=== PATIENT | male | born 1980 | race Caucasian/White ===

== ENCOUNTER 2020-10-23 09:56 | Outpatient (REF) | payer MEDICARE, MEDICAID, SELFPAY ==
[2020-10-23 11:10] LABS: Hemoglobin 13.7 g/dl (14.0-18.0); Lymphocytes Absolute Auto 1.6 X10*3/uL (1.2-4.9); MANUAL DIFF FLAG SCAN; PLT CLUMP 1; Red Cell Distribution Width 12.6 % (11.0-16.0); SCAN SMEAR FLAG 1
[2020-10-23 11:12] LABS: Basophils Percent Auto 0.2 % (0-2); Eosinophils Absolute Auto 0.1 X10*3/uL (0.0-0.4); Eosinophils Percent Auto 2.2 % (0-4); Hematocrit 39.4 % (42-52); Imm Gran Abs Auto 0.01 X10*3/uL (0.00-0.03); Imm Gran Pct Auto 0.2 % (0.0-0.4); Lymphocytes Percent Auto 39.2 % (20-40); Mean Corpuscular HGB Conc 34.8 g/dl (31.0-36.0); Mean Corpuscular Hemoglobin 31.6 pg (27.0-33.0); Mean Corpuscular Volume 90.8 fL (80-98); Mean Platelet Volume 10.9 fL (9.4-12.4); Monocytes Absolute Auto 0.4 X10*3/uL (0.1-1.2); Monocytes Percent Auto 10.6 % (2-11); Neutrophils Absolute Auto 1.9 X10*3/uL (2.0-8.3); Neutrophils Percent Auto 47.6 % (45-73); Platelet Count 135 X10*3/uL (160-400); Red Blood Count 4.34 X10*6/uL (4.60-5.80); White Blood Count 4.1 X10*3/uL (4.8-10.8)
[2020-10-23 11:31] LABS: Alanine Aminotransferase 20 U/L (0-40); Albumin Level 4.5 g/dL (3.5-5.0); Alkaline Phosphatase 83 U/L (39-117); Anion Gap 10 (12-20); Aspartate Amino Transferase 19 U/L (5-37); Bilirubin Total 0.5 mg/dL (0.0-1.0); Blood Urea Nitrogen 18 mg/dL (9-16); Calcium 9.2 mg/dL (8.4-10.2); Carbon Dioxide 32 mmol/L (22-29); Chloride 102 mmol/L (96-108); Estimated Glomerular Filt Rate > 60; Glucose Random 78 mg/dL (60-115); Potassium 3.5 mmol/L (3.3-5.1); Sodium 140 mmol/L (135-145)
[2020-10-23 11:44] LABS: SLIDE REVIEW VERIFIED
[2020-10-23 11:53] LABS: Free T4 (Free Thyroxine) 0.98 ng/dL (0.71-1.85); Thyroid Stimulating Hormone 2.59 uIU/mL (0.32-4.0)
[2020-10-23 12:29] LABS: Vitamin B12 457 pg/mL (200-900)
== END 2020-10-23 09:57 | disposition home or self-care (01) ==
LOC: HO.HMGCLDS 09:56
PROVIDERS: PCP Internal Medicine; Visit Provider Internal Medicine
DX: F69 Unspecified disorder of adult personality and behavior (principal); F48.9 Nonpsychotic mental disorder, unspecified; F41.9 Anxiety disorder, unspecified; Z79.899 Other long term (current) drug therapy
CPT/HCPCS: 36415; 80053; 82607; 82746; 84439; 84443; 85025

== ENCOUNTER 2021-10-09 10:24 | Outpatient (REF) | payer MEDICARE, MEDICAID, SELFPAY ==
[2021-10-09 10:36] LABS: MANUAL DIFF FLAG NO
[2021-10-09 11:17] LABS: Eosinophils Percent Auto 0.5 % (0-4); Hematocrit 41.4 % (42.0-52.0); Hemoglobin 14.3 g/dl (14.0-18.0); Imm Gran Abs Auto 0.01 X10*3/uL (0.00-0.03); Imm Gran Pct Auto 0.2 % (0.0-0.4); Immature Retic Fraction 5.2 % (2.3-13.4); Lymphocytes Absolute Auto 1.5 X10*3/uL (1.2-4.9); Lymphocytes Percent Auto 34.2 % (20-40); Mean Corpuscular HGB Conc 34.5 g/dl (31.0-36.0); Mean Corpuscular Hemoglobin 31.4 pg (27.0-33.0); Mean Corpuscular Volume 90.8 fL (80.0-98.0); Mean Platelet Volume 11.4 fL (9.4-12.4); Monocytes Absolute Auto 0.4 X10*3/uL (0.1-1.2); Monocytes Percent Auto 8.8 % (2-11); Neutrophils Absolute Auto 2.5 x10*3/uL (2.0-8.3); Neutrophils Percent Auto 56.3 % (45-73); Platelet Count 151 X10*3/uL (160-400); Red Blood Count 4.56 X10*6/uL (4.60-5.80); Red Cell Distribution Width 12.5 % (11.0-16.0); Retic HGB Equivalent 36.6 pg (30.0-35.0); Reticulocyte Percent 1.4 % (0.5-1.8); Reticulocytes Absolute 0.062 X10*6/uL (0.026-0.095); White Blood Count 4.4 X10*3/uL (4.8-10.8)
[2021-10-09 11:35] LABS: Alanine Aminotransferase 13 U/L (0-40); Albumin Level 4.6 g/dL (3.5-5.0); Alkaline Phosphatase 68 U/L (39-117); Anion Gap 11 (12-20); Aspartate Amino Transferase 17 U/L (5-37); Bilirubin Total 0.5 mg/dL (0.0-1.0); Blood Urea Nitrogen 16 mg/dL (9-16); Calcium 9.6 mg/dL (8.4-10.2); Carbon Dioxide 31 mmol/L (22-29); Chloride 103 mmol/L (96-108); Cholesterol 159 mg/dL; Estimated Glomerular Filt Rate > 60; Glucose Random 84 mg/dL (60-115); HDL Cholesterol 38 mg/dL; Iron 71 mcg/dL (45-160); LDL Cholesterol Calculated 108 mg/dl; Percent Iron Saturation 22 % (15-50); Potassium 4.4 mmol/L (3.3-5.1); Sodium 141 mmol/L (135-145); Total Iron Binding Capacity 318 mcg/dL (228-428); Triglycerides 69 mg/dL; Unsaturated Iron Binding 247 ug/dL
[2021-10-09 11:59] LABS: Ferritin 54 ng/mL (20-250); Free T4 (Free Thyroxine) 0.82 ng/dL (0.71-1.85); Thyroid Stimulating Hormone 1.35 uIU/mL (0.32-4.0)
[2021-10-11 09:45] LABS: Folate 8.9 ng/mL (> or = 4.0); Vitamin B12 403 pg/mL (200-900)
== END 2021-10-09 10:25 | disposition home or self-care (01) ==
LOC: HO.LAB 10:24
PROVIDERS: PCP Internal Medicine; Visit Provider Internal Medicine
DX: D64.9 Anemia, unspecified (principal); F48.9 Nonpsychotic mental disorder, unspecified; F69 Unspecified disorder of adult personality and behavior; E78.00 Pure hypercholesterolemia, unspecified
CPT/HCPCS: 36415; 80053; 80061; 82607; 82728; 82746; 83540; 84439; 84443; 85025; 85045

== ENCOUNTER → 2021-10-12 15:02 | Outpatient (REF) | payer MEDICARE, MEDICAID, SELFPAY ==
--- NOTE | 2021-10-12 15:06 | ECG_ITS ---
Test Reason : R00.1 Blood Pressure : / mmHG Vent. Rate : 046 BPM Atrial Rate : 046 BPM P-R Int : 112 ms QRS Dur : 084 ms QT Int : 454 ms P-R-T Axes : 051 048 037 degrees QTc Int : 397 ms Sinus bradycardia Otherwise normal ECG No previous ECGs available Referred By: Chelsey Park Electronically Signed By:NEYDA WOLF
== END ==
LOC: HO.CARD 15:02
PROVIDERS: PCP Internal Medicine; Visit Provider Internal Medicine
DX: R00.1 Bradycardia, unspecified (principal)
CPT/HCPCS: 93005

== ENCOUNTER 2021-10-21 16:42 | Emergency (ER) | payer MEDICARE, MEDICAID, SELFPAY ==
--- NOTE | ~2021-10-21 | XR_ITS ---
EXAMINATION: XR chest 1V CLINICAL INFORMATION: Reason for Exam chest pain COMPARISON: None TECHNIQUE: One view of the chest XR/XR chest 1V FINDINGS/IMPRESSION: Clear lungs. No pneumothorax. Blunting of the right costophrenic angle may reflect a trace pleural effusion. Normal cardiomediastinal silhouette.
--- NOTE | 2021-10-21 16:53 | ED.WEAKNESS ---
HPI - Weakness General Stated complaint: WEAKNESS X'S 6 HOURS FROM ASSISTED Time Seen by Provider: 10/21/21 16:51 Source: patient Mode of arrival: ambulatory Limitations: no limitations Related Data Home Medications Medication Instructions Recorded Confirmed aripiprazole 5 mg tablet (Abilify) 5 mg PO DAILY 09/24/20 09/27/21 clonidine HCl 0.2 mg tablet See Rx Instructions PO BEDTIME tab 09/24/20 09/27/21 quetiapine 200 mg tablet (Seroquel) 200 mg PO DAILY tab 09/24/20 09/27/21 Previous Rx's Medication Instructions Recorded guaifenesin 100 mg/5 mL oral 200 mg (10 mL) PO Q4H PRN #118 ml 09/18/20 liquid (Siltussin SA) multivitamin with minerals-ferrous 1 tab PO QAM #90 tab 05/10/21 sulfate 4.5 mg iron tablet (One Daily Multivitamins with Minerals) aluminum-mag hydroxide-simethicone 5 ml PO QID PRN #3000 ml 06/14/21 400 mg-400 mg-40 mg/5 mL oral susp (Maalox Maximum Strength) bacitracin zinc 500 unit/gram See Rx Instructions TOPICAL BID 06/14/21 topical ointment (Antibiotic #14.2 g (bacitracin zinc)) artifi.tears(hypromellose)(PF) 0.3 1 drp OPHTHALMIC (EYE) TID PRN #10 09/27/21 % eye drops ml famotidine 20 mg tablet 20 mg PO BID #56 tab 09/27/21 docusate sodium 100 mg capsule 100 mg PO DAILY 90 Days #90 cap 10/07/21 (Colace) Allergies Allergy/AdvReac Type Severity Reaction Status Date / Time No Known Allergies Allergy Verified 09/27/21 11:09 [facility] Past Medical History Medical History (Updated 09/27/21 @ 12:15 by Chelsey Park MD) Mental and behavioral problem Pervasive developmental disorder Tourettes syndrome Surgical History (Updated 07/29/20 @ 10:27 by KAREY Woodson) No pertinent past surgical history Family History Family History (Updated 07/29/20 @ 10:28 by KAREY Woodson) Father Medical history unknown Mother No problems noted. Social History Social History (Updated 09/24/20 @ 16:21 by Chelsey Park MD) Housing: Other Alcohol intake: never Patient Tobacco Use Status: Never used Tobacco e-Cigarette/Vaping Use: Never Used Second Hand Smoke Exposure: No Current occupational status: disabled Discharge Plan Discharge Prescriptions: No Action guaifenesin [Siltussin SA] 100 mg/5 mL liquid 200 mg PO Q4H PRN (Reason: for cough) Qty: 118 11RF One Daily Multi-Vit w-Mineral 4.5 mg iron tablet 1 tab PO QAM Qty: 90 3RF alum-mag hydroxide-simeth [Maalox Maximum Strength] 400-400-40 mg/5 mL suspension 5 ml PO QID PRN (Reason: indigestion) Qty: 3000 5RF bacitracin zinc [Antibiotic (bacitracin zinc)] 500 unit/gram ointment See Rx Instructions topical BID Qty: 14.2 11RF Rx Instructions: Apply a thin film topical 2 times a day; famotidine 20 mg tablet 20 mg PO BID Qty: 56 0RF docusate sodium [Colace] 100 mg capsule 100 mg PO DAILY 90 Days Qty: 90 3RF aripiprazole [Abilify] 5 mg tablet 5 mg PO DAILY 0RF quetiapine [Seroquel] 200 mg tablet 200 mg PO DAILY 0RF clonidine HCl 0.2 mg tablet See Rx Instructions PO BEDTIME 0RF Rx Instructions: 0.2 in am and 0.4 mg PO bedtime; artifi.tears(hypromellose)(PF) 0.3 % drops 1 drp ophthalmic (eye) TID PRN (Reason: dry eye(s)) Qty: 10 3RF
[2021-10-21 16:55] VITALS: BP 131/85; BP 136/88; PULSE 61; RESP 16; TEMP 36.6; O2SAT 100; O2SAT 99; BMI 22.1
[2021-10-21 17:02] VITALS: PULSE 58
--- NOTE | 2021-10-21 17:21 | ECG_ITS ---
Test Reason : CHEST PAIN Blood Pressure : / mmHG Vent. Rate : 052 BPM Atrial Rate : 052 BPM P-R Int : 144 ms QRS Dur : 090 ms QT Int : 428 ms P-R-T Axes : 048 -03 008 degrees QTc Int : 398 ms Sinus bradycardia with sinus arrhythmia Otherwise normal ECG When compared with ECG of 12-OCT-2021 15:14, No significant changes seen Referred By: Ayse Dunn Electronically Signed By:Rigoberto Corral
--- NOTE | 2021-10-21 17:23 | ED.CHESTPAIN ---
HPI - Chest Pain General Chief Complaint: Chest Pain Stated Complaint: WEAKNESS X'S 6 HOURS FROM [facility] Time Seen by Provider: 10/21/21 16:51 Source: patient Mode of arrival: ambulatory Limitations: no limitations History of Present Illness HPI narrative: 41 y/o male with history of cognitive delay, Tourettes syndrome, pervasive developmental disorder who presents to the ER from long-term with intermittent left sided chest pains today. Patient states they were brief, pinching type pains that did not radiate and occurred randomly starting this morning, none at this time. He told long-term staff that he was feeling lightheaded and dizzy intermittently as well. He was seen by his primary care doctor Dr. Ledesma and has had heart rates in the 40s last physical earlier and September. He was referred to Cardiology and has an appointment on November 22. They are thinking this may be related to his psych medications Seroquel and Abilify. Patient reports he has no pain at this time. He denies any shortness of breath, diaphoresis, syncope or presyncope. He denies any lightheadedness or dizziness but apparently did state this to staff earlier. Patient does have a history of GERD and states the pains ?kind of felt like that. ? MD complaint: chest pain Onset (ago): hour(s) Timing of current episode: episodic Prior episodes: No Onset: during rest Pain location: substernal Pain radiation: none Severity: moderate Quality: sharp Relieving factors: nothing Exacerbating factors: nothing Treatment prior to arrival: none Risk Factors Coronary artery disease risk factors: none Thoracic aortic dissection risk factors: none Related Data Home Medications Medication Instructions Recorded Confirmed aripiprazole 5 mg tablet (Abilify) 5 mg PO DAILY 09/24/20 09/27/21 clonidine HCl 0.2 mg tablet See Rx Instructions PO BEDTIME tab 09/24/20 09/27/21 quetiapine 200 mg tablet (Seroquel) 200 mg PO DAILY tab 09/24/20 09/27/21 Previous Rx's Medication Instructions Recorded guaifenesin 100 mg/5 mL oral 200 mg (10 mL) PO Q4H PRN #118 ml 09/18/20 liquid (Siltussin SA) multivitamin with minerals-ferrous 1 tab PO QAM #90 tab 05/10/21 sulfate 4.5 mg iron tablet (One Daily Multivitamins with Minerals) aluminum-mag hydroxide-simethicone 5 ml PO QID PRN #3000 ml 06/14/21 400 mg-400 mg-40 mg/5 mL oral susp (Maalox Maximum Strength) bacitracin zinc 500 unit/gram See Rx Instructions TOPICAL BID 06/14/21 topical ointment (Antibiotic #14.2 g (bacitracin zinc)) artifi.tears(hypromellose)(PF) 0.3 1 drp OPHTHALMIC (EYE) TID PRN #10 09/27/21 % eye drops ml famotidine 20 mg tablet 20 mg PO BID #56 tab 09/27/21 docusate sodium 100 mg capsule 100 mg PO DAILY 90 Days #90 cap 10/07/21 (Colace) Allergies Allergy/AdvReac Type Severity Reaction Status Date / Time No Known Allergies Allergy Verified 09/27/21 11:09 Review of Systems Review of Systems: Constitutional: No Fever, No Chills ENT/Mouth: No sore throat, No Rhinorrhea, No Swallowing Difficulty Cardiovascular: + Chest Pain, No SOB, No Orthopnea, No Edema Respiratory: No Cough, No Sputum, No Wheezing, No dyspnea Gastrointestinal: No Nausea, No Vomiting, No Diarrhea, No abdominal Pain Genitourinary: No Dysuria, No Urinary Frequency, No Hematuria Musculoskeletal: No joint pain, No Myalgias Skin: No Skin Lesions, No rash Neuro: No Weakness, No Numbness, No Dizziness, No Headache Psych: No Anxiety/Panic, No Depression Heme/Lymph: No Bruising, No Lymphadenopathy Endocrine: No Polyuria, No Polydipsia [facility] Past Medical History Medical History (Updated 10/21/21 @ 17:58 by DELROY Durham) Mental and behavioral problem Pervasive developmental disorder Tourettes syndrome Surgical History (Updated 07/29/20 @ 10:27 by KAREY Woodson) No pertinent past surgical history Family History Family History (Updated 07/29/20 @ 10:28 by KAREY Woodson) Father Medical history unknown Mother No problems noted. Social History Social History (Updated 09/24/20 @ 16:21 by Chelsey Park MD) Housing: Other Alcohol intake: never Patient Tobacco Use Status: Never used Tobacco e-Cigarette/Vaping Use: Never Used Second Hand Smoke Exposure: No Use of substances other than those prescribed or required for medical reasons: No Advance Directives: No Advance Directives Information Provided: No Current occupational status: disabled Physical Exam Vital Signs: Vital Signs: Last Vital Signs Temp 97.6 F 10/21/21 18:40 Pulse 58 10/21/21 18:40 Resp 16 10/21/21 18:40 BP 127/90 H 10/21/21 18:40 Pulse Ox 99 10/21/21 18:40 BMI result Body Mass Index 22.1 Appearance: Alert. Oriented X3. No acute distress. Eyes: Pupils equal, round and reactive to light. ENT: Pharynx normal. Neck: Normal inspection. Neck supple. CVS: Normal heart rate and rhythm. Pulses normal. Nontender anterior chest wall. Respiratory: No respiratory distress. Breath sounds normal. Abdomen: Soft and nontender. +BS x4 Skin: Skin warm and dry. Normal skin color. Normal skin turgor. No rashes. Extremities: No lower extremity edema. Neuro/psych: Oriented X 3. No motor deficit. No sensory deficit. Pleasant and cooperative. Course Course Course Narrative: 41-year-old male with a history of cognitive delay who comes from a long-term presents to the ER for evaluation of intermittent, brief episodes of pinching chest pain that happened today. None at this time. He had no other accompanying symptoms per his report. He was recently diagnosed with bradycardia on his routine physical. He denies any syncopal or presyncopal episodes. Heart rate on arrival are 50s to 60s. Blood pressure is stable. He appears well and has no complaints at this time. Will get EKG, troponin and basic lab workup. Doubt acute cardiac event. Reevaluation(s) Reevaluation #1: EKG is unremarkable, troponin is negative. Chest x-ray shows maybe a trace effusion. He has no respiratory distress, shortness of breath or hypoxia. Heart remains in the 50s here blood pressure is stable. Orthostatic VS negative. He is stable for discharge home with plan to follow up with Cardiology as scheduled in November. Patient agrees with plan. MDM - Chest Pain Lab Data Attestation: I reviewed the patient's lab results. Result diagrams: 10/21/21 18:23 10/21/21 18:23 Labs: Lab Results 10/21/21 10/21/21 10/21/21 Range/Units 18:23 18:23 18:23 WBC 4.7 L (4.8-10.8) X10*3/uL RBC 4.59 L (4.60-5.80) X10*6/uL Hgb 14.3 (14.0-18.0) g/dl Hct 41.7 L (42.0-52.0) % MCV 90.8 (80.0-98.0) fL MCH 31.2 (27.0-33.0) pg MCHC 34.3 (31.0-36.0) g/dl RDW 12.5 (11.0-16.0) % Plt Count 144 L (160-400) X10*3/uL MPV 11.7 (9.4-12.4) fL Immature Gran % (Auto) 0.2 (0.0-0.4) % Neut % (Auto) 59.7 (45-73) % Lymph % (Auto) 29.9 (20-40) % [place] % (Auto) 9.6 (2-11) % Eos % (Auto) 0.4 (0-4) % Baso % (Auto) 0.2 (0-2) % Lymph # (Auto) 1.4 (1.2-4.9) X10*3/uL [place] # (Auto) 0.5 (0.1-1.2) X10*3/uL Eos # (Auto) 0.0 (0.0-0.4) X10*3/uL Baso # (Auto) 0.0 (0.0-0.2) X10*3/uL Abs Immat Gran (auto) 0.01 (0.00-0.03) X10*3/uL Absolute Neuts (auto) 2.8 (2.0-8.3) x10*3/uL Absolute Nucleated RBC 0.000 (0.0-0.012) X10*3/uL Nucleated RBC % (auto) 0.0 (0.0-0.2) /100WBC Sodium 142 (135-145) mmol/L Potassium 4.0 (3.3-5.1) mmol/L Chloride 105 (96-108) mmol/L Carbon Dioxide 30 H (22-29) mmol/L Anion Gap 11 L (12-20) BUN 17 H (9-16) mg/dL Creatinine 0.86 (0.5-1.4) mg/dL Estim Creat Clear Calc 110.9 Estimated GFR > 60 Random Glucose 94 (60-115) mg/dL Calcium 9.6 (8.4-10.2) mg/dL Magnesium 2.2 (1.6-2.6) mg/dL Total Bilirubin 0.5 (0.0-1.0) mg/dL Direct Bilirubin 0.2 (0.0-0.5) mg/dL AST 18 (5-37) U/L ALT 16 (0-40) U/L Alkaline Phosphatase 72 (39-117) U/L Troponin I High Sens < 3.5 (<3.5-35.0) ng/L Total Protein 7.7 (6.5-8.0) g/dL Albumin 4.5 (3.5-5.0) g/dL ECG Data ECG #1: Attestation: I personally reviewed and interpreted this ECG as follows: ECG interpretation date: 10/21/21 ECG interpretation time: 17:56 Prior ECG tracings: available for review Interpretation: sinus bradycardia w/ sinus arrythmia, HR 52, t-wave inversion in lead III, peaked T-wave in V2 only Discharge Plan Discharge Clinical Impression: Atypical chest pain Patient Disposition: Home, Self-Care Instructions: Noncardiac Chest Pain (ED) Additional Instructions: Your lab workup today was normal. Your EKG was unremarkable. This is unlikely to be cardiac chest pain. 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 If you develop new or worsening symptoms call 911 or come back to the ER for further evaluation. Prescriptions: No Action guaifenesin [Siltussin SA] 100 mg/5 mL liquid 200 mg PO Q4H PRN (Reason: for cough) Qty: 118 11RF One Daily Multi-Vit w-Mineral 4.5 mg iron tablet 1 tab PO QAM Qty: 90 3RF alum-mag hydroxide-simeth [Maalox Maximum Strength] 400-400-40 mg/5 mL suspension 5 ml PO QID PRN (Reason: indigestion) Qty: 3000 5RF bacitracin zinc [Antibiotic (bacitracin zinc)] 500 unit/gram ointment See Rx Instructions topical BID Qty: 14.2 11RF Rx Instructions: Apply a thin film topical 2 times a day; famotidine 20 mg tablet 20 mg PO BID Qty: 56 0RF docusate sodium [Colace] 100 mg capsule 100 mg PO DAILY 90 Days Qty: 90 3RF aripiprazole [Abilify] 5 mg tablet 5 mg PO DAILY 0RF quetiapine [Seroquel] 200 mg tablet 200 mg PO DAILY 0RF clonidine HCl 0.2 mg tablet See Rx Instructions PO BEDTIME 0RF Rx Instructions: 0.2 in am and 0.4 mg PO bedtime; artifi.tears(hypromellose)(PF) 0.3 % drops 1 drp ophthalmic (eye) TID PRN (Reason: dry eye(s)) Qty: 10 3RF
[2021-10-21 18:27] LABS: MANUAL DIFF FLAG NO
[2021-10-21 18:36] VITALS: BP 112/70; PULSE 43
[2021-10-21 18:37] VITALS: BP 125/84; PULSE 48
[2021-10-21 18:38] VITALS: BP 127/90; PULSE 50
[2021-10-21 18:40] VITALS: BP 127/90; PULSE 58; RESP 16; TEMP 36.4; O2SAT 99
[2021-10-21 18:51] LABS: Basophils Percent Auto 0.2 % (0-2); Eosinophils Percent Auto 0.4 % (0-4); Hematocrit 41.7 % (42.0-52.0); Hemoglobin 14.3 g/dl (14.0-18.0); Imm Gran Abs Auto 0.01 X10*3/uL (0.00-0.03); Imm Gran Pct Auto 0.2 % (0.0-0.4); Lymphocytes Absolute Auto 1.4 X10*3/uL (1.2-4.9); Lymphocytes Percent Auto 29.9 % (20-40); Mean Corpuscular HGB Conc 34.3 g/dl (31.0-36.0); Mean Corpuscular Hemoglobin 31.2 pg (27.0-33.0); Mean Corpuscular Volume 90.8 fL (80.0-98.0); Mean Platelet Volume 11.7 fL (9.4-12.4); Monocytes Absolute Auto 0.5 X10*3/uL (0.1-1.2); Monocytes Percent Auto 9.6 % (2-11); Neutrophils Absolute Auto 2.8 x10*3/uL (2.0-8.3); Neutrophils Percent Auto 59.7 % (45-73); Platelet Count 144 X10*3/uL (160-400); Red Blood Count 4.59 X10*6/uL (4.60-5.80); Red Cell Distribution Width 12.5 % (11.0-16.0); White Blood Count 4.7 X10*3/uL (4.8-10.8)
[2021-10-21 18:53] LABS: Alanine Aminotransferase 16 U/L (0-40); Albumin Level 4.5 g/dL (3.5-5.0); Alkaline Phosphatase 72 U/L (39-117); Anion Gap 11 (12-20); Aspartate Amino Transferase 18 U/L (5-37); Bilirubin Direct 0.2 mg/dL (0.0-0.5); Bilirubin Total 0.5 mg/dL (0.0-1.0); Blood Urea Nitrogen 17 mg/dL (9-16); Calcium 9.6 mg/dL (8.4-10.2); Carbon Dioxide 30 mmol/L (22-29); Chloride 105 mmol/L (96-108); Creatinine Clr Calc Pharmacy 110.9; Estimated Glomerular Filt Rate > 60; Glucose Random 94 mg/dL (60-115); Magnesium 2.2 mg/dL (1.6-2.6); Sodium 142 mmol/L (135-145); Total Protein 7.7 g/dL (6.5-8.0)
[2021-10-21 18:59] LABS: Troponin-I High Sensitivity < 3.5 ng/L (<3.5-35.0)
== END 2021-10-21 19:58 | disposition home or self-care (01) ==
PROVIDERS: Physician Assistant; Emergency Provider Emergency Medicine Emergency Medical Services
DX: R07.89 Other chest pain (principal); F95.2 Tourette's disorder; F48.9 Nonpsychotic mental disorder, unspecified
CPT/HCPCS: 36415; 71045; 80048; 80076; 83735; 84484; 85025; 93005; 99283; 99285

== ENCOUNTER → 2021-11-22 14:51 | Outpatient (BNVA) | payer MEDICARE, MEDICAID, SELFPAY | PROVIDERS: PCP Internal Medicine; Referring Provider Internal Medicine; Visit Provider Internal Medicine Cardiovascular Disease | DX: R00.1 Bradycardia, unspecified (principal) | CPT/HCPCS: 93005; 99202 ==

== ENCOUNTER → 2021-12-15 15:14 | Outpatient (REF) | payer MEDICARE, MEDICAID, SELFPAY ==
--- NOTE | 2021-12-15 15:18 | HM_ITS ---
* Total monitoring time 3 days. * Underlying rhythm is sinus. Average rate 70/Min. Range 30 to 158/Min. * No atrial fibrillation or flutter or AV blocks or pauses. * Rare supraventricular and ventricular ectopy with minimal burden. * No patient events. MTDD
== END ==
LOC: HO.CARD 15:14
PROVIDERS: PCP Internal Medicine; Visit Provider Internal Medicine Cardiovascular Disease
DX: R00.1 Bradycardia, unspecified (principal)
CPT/HCPCS: 93242

== ENCOUNTER 2022-04-21 16:32 | Emergency (ER) | payer MEDICARE, MEDICAID, SELFPAY ==
--- NOTE | ~2022-04-21 | XR_ITS ---
EXAMINATION: XR CHEST CLINICAL INFORMATION: Chest pain. COMPARISON: Chest x-ray 10/21/2021 TECHNIQUE: 2 views of the chest were obtained. FINDINGS: No significant abnormality is noted involving the heart, lungs, mediastinum, bony thorax or soft tissues. XR/XR chest 2V IMPRESSION: Unremarkable examination.
--- NOTE | 2022-04-21 16:35 | ECG_ITS ---
Test Reason : cp Blood Pressure : / mmHG Vent. Rate : 050 BPM Atrial Rate : 050 BPM P-R Int : 144 ms QRS Dur : 086 ms QT Int : 422 ms P-R-T Axes : 025 -07 012 degrees QTc Int : 384 ms Sinus bradycardia with sinus arrhythmia Otherwise normal ECG When compared with ECG of 21-OCT-2021 17:33, No significant change was found Referred By: Generic ED Physician Electronically Signed By:MARSHAL DE LA CRUZ
[2022-04-21 16:36] VITALS: BP 140/84; PULSE 61; RESP 19; TEMP 36.6; O2SAT 99; BMI 25.8
[2022-04-21 16:54] LABS: MANUAL DIFF FLAG NO
[2022-04-21 16:56] LABS: Basophils Percent Auto 0.3 % (0-2); Eosinophils Percent Auto 0.4 % (0-4); Hematocrit 41.1 % (42.0-52.0); Hemoglobin 14.3 g/dl (14.0-18.0); Imm Gran Abs Auto 0.01 X10*3/uL (0.00-0.03); Imm Gran Pct Auto 0.1 % (0.0-0.4); Lymphocytes Absolute Auto 2.5 X10*3/uL (1.2-4.9); Mean Corpuscular HGB Conc 34.8 g/dl (31.0-36.0); Mean Corpuscular Hemoglobin 31.2 pg (27.0-33.0); Mean Corpuscular Volume 89.5 fL (80.0-98.0); Mean Platelet Volume 10.8 fL (9.4-12.4); Monocytes Absolute Auto 0.5 X10*3/uL (0.1-1.2); Monocytes Percent Auto 7.4 % (2-11); Neutrophils Absolute Auto 4.1 x10*3/uL (2.0-8.3); Neutrophils Percent Auto 56.8 % (45-73); Platelet Count 167 X10*3/uL (160-400); Red Blood Count 4.59 X10*6/uL (4.60-5.80); Red Cell Distribution Width 12.7 % (11.0-16.0); White Blood Count 7.2 X10*3/uL (4.8-10.8)
[2022-04-21 17:16] LABS: Anion Gap 18 (12-20); Blood Urea Nitrogen 15 mg/dL (9-16); Calcium 9.1 mg/dL (8.4-10.2); Carbon Dioxide 26 mmol/L (22-29); Chloride 103 mmol/L (96-108); Creatinine Clr Calc Pharmacy 103.3; Estimated Glomerular Filt Rate > 60; Glucose Random 90 mg/dL (60-115); Potassium 3.7 mmol/L (3.3-5.1); Sodium 143 mmol/L (135-145)
[2022-04-21 17:23] LABS: Troponin-I High Sensitivity < 3.5 ng/L (<3.5-35.0)
--- NOTE | 2022-04-21 18:39 | ED.GENADULT ---
HPI - General Adult General Chief complaint: General Medical Stated complaint: chest pain Time Seen by Provider: 04/21/22 18:39 Source: patient Mode of arrival: ambulatory Limitations: no limitations History of Present Illness HPI narrative: patient 41 years old with history of sinus bradycardia tourettes syndrome, mental and behavioral problems, GERD woke up in the last night with heartburn feeling in the mid chest lasted for few seconds no radiation of the pain no shortness of breath no cough no stomach pain no nausea or vomiting no prior cardiac history nor substance abuse no cocaine use no chest pain at this time Related Data Home Medications Medication Instructions Recorded Confirmed aripiprazole 5 mg tablet (Abilify) 5 mg PO DAILY 09/24/20 11/22/21 clonidine HCl 0.2 mg tablet See Rx Instructions PO BEDTIME 09/24/20 11/22/21 quetiapine 200 mg tablet (Seroquel) 200 mg PO DAILY 09/24/20 11/22/21 Previous Rx's Medication Instructions Recorded aluminum-mag hydroxide-simethicone 5 ml PO QID PRN indigestion #3,000 06/14/21 400 mg-400 mg-40 mg/5 mL oral susp mL (Maalox Maximum Strength) bacitracin zinc 500 unit/gram See Rx Instructions topical BID 06/14/21 topical ointment (Antibiotic #14.2 grams (bacitracin zinc)) artifi.tears(hypromellose)(PF) 0.3 1 drp ophthalmic (eye) TID PRN dry 09/27/21 % eye drops eye(s) #10 mL docusate sodium 100 mg capsule 100 mg PO DAILY 90 days #90 caps 10/07/21 (Colace) guaifenesin 100 mg/5 mL oral 200 mg (10 mL) PO Q4H PRN for 10/26/21 liquid (Siltussin SA) cough #118 mL famotidine 20 mg tablet 20 mg PO BID #180 tabs 11/23/21 multivitamin with minerals-ferrous 1 tab PO QAM #90 tabs 04/15/22 sulfate 4.5 mg iron tablet (One Daily Multivitamins with Minerals) Allergies Allergy/AdvReac Type Severity Reaction Status Date / Time No Known Allergies Allergy Verified 01/05/22 11:34 Review of Systems Review of Systems: Yes all other systems are reviewed and are negative PMF Past Medical History Medical History Mental and behavioral problem Pervasive developmental disorder Tourettes syndrome Surgical History No pertinent past surgical history Family History Family History Father Medical history unknown Mother No problems noted. Social History Social History Housing: Other Alcohol intake: never Patient Tobacco Use Status: Never used Tobacco e-Cigarette/Vaping Use: Never Used Second Hand Smoke Exposure: No Use of substances other than those prescribed or required for medical reasons: No Advance Directives: No Advance Directives Information Provided: Yes Current occupational status: disabled Cognitive needs: No Hearing needs: No Vision needs: No Physical Exam ED Vital Signs: Vital Signs - 24 hr 04/21/22 16:36 04/21/22 18:45 Temperature 98 F 98.4 F Pulse Rate 61 56 Respiratory Rate 19 20 Blood Pressure 140/84 H 113/75 Pulse Oximetry 99 97 Oxygen Delivery Method Room Air Room Air BMI result Body Mass Index 25.8 Appearance: Alert. Oriented X3. No acute distress. Eyes: No pallor or icterus ENT: Pharynx normal. Oral Mucosa moist Neck: Normal inspection. Neck supple. CVS: Normal heart rate and rhythm. Pulses normal. Respiratory: No respiratory distress. Equal air entry bilateral, no wheezing/rales/rhonchi Abdomen: Soft and nontender. Bowel sounds are present, no mass palpable, no CVA tenderness Skin: Skin warm and dry. Normal skin color. Normal skin turgor. Extremities: No lower extremity edema. No calf tenderness Neuro: Oriented X 3. No motor deficit. Medical Decision Making MDM Narrative Medical decision making narrative: Atypical chest pain heart score was 0 EKG normal high sensitive troponin negative will discharge patient home Medical Records Medical records reviewed: Yes I reviewed the patient's medical records. Lab Data Lab results reviewed: Yes I reviewed the patient's lab results. Result diagrams: 04/21/22 16:50 04/21/22 16:50 Labs: Lab Results 04/21/22 04/21/22 04/21/22 Range/Units 16:50 16:50 16:50 WBC 7.2 (4.8-10.8) X10*3/uL RBC 4.59 L (4.60-5.80) X10*6/uL Hgb 14.3 (14.0-18.0) g/dl Hct 41.1 L (42.0-52.0) % MCV 89.5 (80.0-98.0) fL MCH 31.2 (27.0-33.0) pg MCHC 34.8 (31.0-36.0) g/dl RDW 12.7 (11.0-16.0) % Plt Count 167 (160-400) X10*3/uL MPV 10.8 (9.4-12.4) fL Immature Gran % (Auto) 0.1 (0.0-0.4) % Neut % (Auto) 56.8 (45-73) % Lymph % (Auto) 35.0 (20-40) % [place] % (Auto) 7.4 (2-11) % Eos % (Auto) 0.4 (0-4) % Baso % (Auto) 0.3 (0-2) % Lymph # (Auto) 2.5 (1.2-4.9) X10*3/uL [place] # (Auto) 0.5 (0.1-1.2) X10*3/uL Eos # (Auto) 0.0 (0.0-0.4) X10*3/uL Baso # (Auto) 0.0 (0.0-0.2) X10*3/uL Abs Immat Gran (auto) 0.01 (0.00-0.03) X10*3/uL Absolute Neuts (auto) 4.1 (2.0-8.3) x10*3/uL Absolute Nucleated RBC 0.000 (0.0-0.012) X10*3/uL Nucleated RBC % (auto) 0.0 (0.0-0.2) /100WBC Sodium 143 (135-145) mmol/L Potassium 3.7 (3.3-5.1) mmol/L Chloride 103 (96-108) mmol/L Carbon Dioxide 26 (22-29) mmol/L Anion Gap 18 (12-20) BUN 15 (9-16) mg/dL Creatinine 0.96 (0.5-1.4) mg/dL Estim Creat Clear Calc 103.3 Estimated GFR > 60 Random Glucose 90 (60-115) mg/dL Calcium 9.1 (8.4-10.2) mg/dL Troponin I High Sens < 3.5 (<3.5-35.0) ng/L ECG Data Attestation: I personally reviewed and interpreted this ECG as follows: Interpretation: Sinus bradycardia with heart rate of 50 beats per minute sinus arrhythmia no acute ST-T changes normal axis no acute ischemia Scores Heart Score History: -0- slightly suspicious ECG: -0- normal Age: -0- < or = 45 Risk factory: -0- no risk factors known Troponin: -0- < or = normal limit Score: 0 Risk: 1.7% Discharge Plan Discharge Clinical Impression: Chest pain due to GERD Patient Disposition: Home, Self-Care Instructions: Chest Pain (ED), Gastroesophageal Reflux Disease (ED) Additional Instructions: Avoid fried/spicy food at nighttime Continue famotidine and follow with PCP If chest pain is not from the heart likely from acid reflux Report to the ER if worsening/recurrence of the chest Prescriptions: No Action alum-mag hydroxide-simeth [Maalox Maximum Strength] 400-400-40 mg/5 mL suspension 5 ml PO QID PRN (Reason: indigestion) Qty: 3000 5RF bacitracin zinc [Antibiotic (bacitracin zinc)] 500 unit/gram ointment See Rx Instructions topical BID Qty: 14.2 11RF Rx Instructions: Apply a thin film topical 2 times a day; docusate sodium [Colace] 100 mg capsule 100 mg PO DAILY 90 Days Qty: 90 3RF guaifenesin [Siltussin SA] 100 mg/5 mL liquid 200 mg PO Q4H PRN (Reason: for cough) Qty: 118 11RF famotidine 20 mg tablet 20 mg PO BID Qty: 180 3RF One Daily Multi-Vit w-Mineral 4.5 mg iron tablet 1 tab PO QAM Qty: 90 3RF aripiprazole [Abilify] 5 mg tablet 5 mg PO DAILY quetiapine [Seroquel] 200 mg tablet 200 mg PO DAILY clonidine HCl 0.2 mg tablet See Rx Instructions PO BEDTIME Rx Instructions: 0.2 in am and 0.4 mg PO bedtime; artifi.tears(hypromellose)(PF) 0.3 % drops 1 drp ophthalmic (eye) TID PRN (Reason: dry eye(s)) Qty: 10 3RF
[2022-04-21 18:45] VITALS: BP 113/75; PULSE 56; RESP 20; TEMP 36.9; O2SAT 97
--- NOTE | 2022-04-21 18:50 | PC.NURSE ---
Patient came in presenting chest pain although, when the assessment was completing pt reported no having any pain at this time. Patient VS are stable. Patient was assessed by the doctor and being discharge.
== END 2022-04-21 19:03 | disposition home or self-care (01) ==
PROVIDERS: Emergency Provider Internal Medicine; PCP Internal Medicine
DX: R07.9 Chest pain, unspecified (principal); K21.9 Gastro-esophageal reflux disease without esophagitis
CPT/HCPCS: 36415; 71046; 80048; 84484; 85025; 93005; 99283; 99284

== ENCOUNTER 2022-04-26 12:17 | Emergency (ER) | payer MEDICARE, MEDICAID, SELFPAY ==
--- NOTE | ~2022-04-26 | XR_ITS ---
EXAMINATION: XR CHEST CLINICAL INFORMATION: Chest pain COMPARISON: Previous chest x-ray was recent 04/21/2022 TECHNIQUE: Frontal view of the chest was obtained. FINDINGS: No significant abnormality is noted involving the heart, lungs, mediastinum, bony thorax or soft tissues. XR/XR chest 1V IMPRESSION: Unremarkable examination.
[2022-04-26 12:30] VITALS: BP 131/72; PULSE 58; RESP 19; TEMP 36.6; O2SAT 99; BMI 25.1
--- NOTE | 2022-04-26 12:33 | ECG_ITS ---
Test Reason : chest pain Blood Pressure : / mmHG Vent. Rate : 057 BPM Atrial Rate : 057 BPM P-R Int : 148 ms QRS Dur : 090 ms QT Int : 428 ms P-R-T Axes : 055 005 020 degrees QTc Int : 416 ms Sinus bradycardia Otherwise normal ECG When compared with ECG of 21-APR-2022 16:43, No significant change was found Referred By: Dandy La Electronically Signed By:MARSHAL DE LA CRUZ
--- NOTE | 2022-04-26 12:53 | ED.GENADULT ---
HPI - General Adult General Chief complaint: General Medical Stated complaint: CP X'S 1 HOUR FROM [facility] PER EMS Time Seen by Provider: 04/26/22 12:52 Source: patient Mode of arrival: ambulatory Limitations: no limitations History of Present Illness HPI narrative: This is a 41 years old male presented to the emergency department complaining of chest pain started about 2 hours ago pain is resolved at this time. Described the pain as dull no radiating. Patient has no risk factor for coronary artery disease, he does not smoke no diabetes or hypertension he does have a history of anxiety. The pain was not exertional Onset (ago): hour(s) (2) Radiation: non-radiation Severity: moderate Quality: burning Relieving factors: none Exacerbating factors: none Related Data Home Medications Medication Instructions Recorded Confirmed aripiprazole 5 mg tablet (Abilify) 5 mg PO DAILY 09/24/20 11/22/21 clonidine HCl 0.2 mg tablet See Rx Instructions PO BEDTIME 09/24/20 11/22/21 quetiapine 200 mg tablet (Seroquel) 200 mg PO DAILY 09/24/20 11/22/21 Previous Rx's Medication Instructions Recorded aluminum-mag hydroxide-simethicone 5 ml PO QID PRN indigestion #3,000 06/14/21 400 mg-400 mg-40 mg/5 mL oral susp mL (Maalox Maximum Strength) bacitracin zinc 500 unit/gram See Rx Instructions topical BID 06/14/21 topical ointment (Antibiotic #14.2 grams (bacitracin zinc)) artifi.tears(hypromellose)(PF) 0.3 1 drp ophthalmic (eye) TID PRN dry 09/27/21 % eye drops eye(s) #10 mL docusate sodium 100 mg capsule 100 mg PO DAILY 90 days #90 caps 10/07/21 (Colace) guaifenesin 100 mg/5 mL oral 200 mg (10 mL) PO Q4H PRN for 10/26/21 liquid (Siltussin SA) cough #118 mL famotidine 20 mg tablet 20 mg PO BID #180 tabs 11/23/21 multivitamin with minerals-ferrous 1 tab PO QAM #90 tabs 04/15/22 sulfate 4.5 mg iron tablet (One Daily Multivitamins with Minerals) Allergies Allergy/AdvReac Type Severity Reaction Status Date / Time No Known Allergies Allergy Verified 01/05/22 11:34 Review of Systems Constitutional: Constitutional: Reports no additional constitutional complaints ENT: Reports system reviewed and no additional complaints, except as documented [facility] Past Medical History Medical History Mental and behavioral problem Pervasive developmental disorder Tourettes syndrome Surgical History No pertinent past surgical history Family History Family History Father Medical history unknown Mother No problems noted. Social History Social History Housing: Other Alcohol intake: never Patient Tobacco Use Status: Never used Tobacco e-Cigarette/Vaping Use: Never Used Second Hand Smoke Exposure: No Current occupational status: disabled Cognitive needs: No Hearing needs: No Vision needs: No Physical Exam ED Vital Signs: Vital Signs - 24 hr 04/26/22 12:30 04/26/22 13:13 Temperature 98 F Pulse Rate 58 54 Respiratory Rate 19 16 Blood Pressure 131/72 117/73 Pulse Oximetry 99 100 Oxygen Delivery Method Room Air Room Air BMI result Body Mass Index 25.1 Const General: cooperative and anxious Nutritional Appearance: average body habitus Orientation/consciousness: patient oriented x3 Limitations: no limitations HENMT Head: Yes normal to inspection Ears: hearing grossly normal bilaterally General nose exam: Normal external nose present Face and sinus: Yes normal facial exam Mouth: Normal oral and palatal mucosa present Throat: Yes posterior oropharynx normal Neck Neck: Yes full ROM Chest Chest palpation & inspection: normal inspection of the chest Resp Effort & Inspection: normal respiratory effort Auscultation: clear to auscultation bilaterally Cardio Jugular venous distension: no JVD Rate: regular rate Rhythm: regular rhythm GI Inspection: Yes normal to inspection Palpation (GI): Soft to palpation, not firm, nontender and no guarding Auscultation: normal bowel sounds Skin General skin exam: no rashes or lesions noted Neuro General: patient oriented x3 Cranial nerves: Yes CN's II-XII intact bilaterally Course Reevaluation(s) Reevaluation #1: I RE-EXAMINED THE PATIENT AT THIS TIME A HE CHEST PAIN, DELTA IS NEGATIVE, WE ARM SEEN THIS PATIENT BEFORE WITH THE ATYPICAL CHEST PAIN I THINK HE CAN BE DISCHARGED HOME AT THIS TIME IN FOLLOW-UP WITH HIS PRIMARY CARE PHYSICIAN Medical Decision Making Lab Data Result diagrams: 04/26/22 13:19 04/26/22 13:19 Labs: Lab Results 04/26/22 04/26/22 04/26/22 Range/Units 13:19 13:19 13:19 WBC 4.6 L (4.8-10.8) X10*3/uL RBC 4.27 L (4.60-5.80) X10*6/uL Hgb 13.5 L (14.0-18.0) g/dl Hct 38.0 L (42.0-52.0) % MCV 89.0 (80.0-98.0) fL MCH 31.6 (27.0-33.0) pg MCHC 35.5 (31.0-36.0) g/dl RDW 12.7 (11.0-16.0) % Plt Count 140 L (160-400) X10*3/uL MPV 10.9 (9.4-12.4) fL Immature Gran % (Auto) 0.0 (0.0-0.4) % Neut % (Auto) 59.8 (45-73) % Lymph % (Auto) 30.8 (20-40) % [place] % (Auto) 8.6 (2-11) % Eos % (Auto) 0.6 (0-4) % Baso % (Auto) 0.2 (0-2) % Lymph # (Auto) 1.4 (1.2-4.9) X10*3/uL [place] # (Auto) 0.4 (0.1-1.2) X10*3/uL Eos # (Auto) 0.0 (0.0-0.4) X10*3/uL Baso # (Auto) 0.0 (0.0-0.2) X10*3/uL Abs Immat Gran (auto) 0.00 (0.00-0.03) X10*3/uL Absolute Neuts (auto) 2.8 (2.0-8.3) x10*3/uL Absolute Nucleated RBC 0.000 (0.0-0.012) X10*3/uL Nucleated RBC % (auto) 0.0 (0.0-0.2) /100WBC Sodium 142 (135-145) mmol/L Potassium 3.7 (3.3-5.1) mmol/L Chloride 103 (96-108) mmol/L Carbon Dioxide 28 (22-29) mmol/L Anion Gap 15 (12-20) BUN 11 (9-16) mg/dL Creatinine 0.90 (0.5-1.4) mg/dL Estim Creat Clear Calc 110.1 Estimated GFR > 60 Random Glucose 75 (60-115) mg/dL Calcium 9.5 (8.4-10.2) mg/dL Total Bilirubin 0.5 (0.0-1.0) mg/dL AST 22 (5-37) U/L ALT 20 (0-40) U/L Alkaline Phosphatase 71 (39-117) U/L Troponin I High Sens < 3.5 (<3.5-35.0) ng/L Total Protein 7.4 (6.5-8.0) g/dL Albumin 4.3 (3.5-5.0) g/dL 04/26/22 Range/Units 14:59 WBC (4.8-10.8) X10*3/uL RBC (4.60-5.80) X10*6/uL Hgb (14.0-18.0) g/dl Hct (42.0-52.0) % MCV (80.0-98.0) fL MCH (27.0-33.0) pg MCHC (31.0-36.0) g/dl RDW (11.0-16.0) % Plt Count (160-400) X10*3/uL MPV (9.4-12.4) fL Immature Gran % (Auto) (0.0-0.4) % Neut % (Auto) (45-73) % Lymph % (Auto) (20-40) % [place] % (Auto) (2-11) % Eos % (Auto) (0-4) % Baso % (Auto) (0-2) % Lymph # (Auto) (1.2-4.9) X10*3/uL [place] # (Auto) (0.1-1.2) X10*3/uL Eos # (Auto) (0.0-0.4) X10*3/uL Baso # (Auto) (0.0-0.2) X10*3/uL Abs Immat Gran (auto) (0.00-0.03) X10*3/uL Absolute Neuts (auto) (2.0-8.3) x10*3/uL Absolute Nucleated RBC (0.0-0.012) X10*3/uL Nucleated RBC % (auto) (0.0-0.2) /100WBC Sodium (135-145) mmol/L Potassium (3.3-5.1) mmol/L Chloride (96-108) mmol/L Carbon Dioxide (22-29) mmol/L Anion Gap (12-20) BUN (9-16) mg/dL Creatinine (0.5-1.4) mg/dL Estim Creat Clear Calc Estimated GFR Random Glucose (60-115) mg/dL Calcium (8.4-10.2) mg/dL Total Bilirubin (0.0-1.0) mg/dL AST (5-37) U/L ALT (0-40) U/L Alkaline Phosphatase (39-117) U/L Troponin I High Sens < 3.5 (<3.5-35.0) ng/L Total Protein (6.5-8.0) g/dL Albumin (3.5-5.0) g/dL Imaging Data Chest x-ray: Radiologist's impression: cc: Dandy La MD~ EXAMINATION: XR CHEST CLINICAL INFORMATION: Chest pain COMPARISON: Previous chest x-ray was recent 04/21/2022 TECHNIQUE: Frontal view of the chest was obtained. FINDINGS: No significant abnormality is noted involving the heart, lungs, mediastinum, bony thorax or soft tissues. XR/XR chest 1V IMPRESSION: Unremarkable examination. ? Dictated By: Destiny Holder MD Signed By: <Electronically signed by Destiny Holder MD in OV> 04/26/22 1353 DD/ 1303 TD/TT:? Disaster Recovery Analyst: MAYDA ECG Data Pacemaker model: EKG shows normal sinus rhythm rate [address]-T changes Discharge Plan Discharge Clinical Impression: Chest pain Patient Disposition: Home, Self-Care Instructions: Chest Pain (DC) Prescriptions: No Action alum-mag hydroxide-simeth [Maalox Maximum Strength] 400-400-40 mg/5 mL suspension 5 ml PO QID PRN (Reason: indigestion) Qty: 3000 5RF bacitracin zinc [Antibiotic (bacitracin zinc)] 500 unit/gram ointment See Rx Instructions topical BID Qty: 14.2 11RF Rx Instructions: Apply a thin film topical 2 times a day; docusate sodium [Colace] 100 mg capsule 100 mg PO DAILY 90 Days Qty: 90 3RF guaifenesin [Siltussin SA] 100 mg/5 mL liquid 200 mg PO Q4H PRN (Reason: for cough) Qty: 118 11RF famotidine 20 mg tablet 20 mg PO BID Qty: 180 3RF One Daily Multi-Vit w-Mineral 4.5 mg iron tablet 1 tab PO QAM Qty: 90 3RF aripiprazole [Abilify] 5 mg tablet 5 mg PO DAILY quetiapine [Seroquel] 200 mg tablet 200 mg PO DAILY clonidine HCl 0.2 mg tablet See Rx Instructions PO BEDTIME Rx Instructions: 0.2 in am and 0.4 mg PO bedtime; artifi.tears(hypromellose)(PF) 0.3 % drops 1 drp ophthalmic (eye) TID PRN (Reason: dry eye(s)) Qty: 10 3RF Referrals: Po,Chelsey Young MD [Primary Care Provider] - 2 days
[2022-04-26 13:13] VITALS: BP 117/73; PULSE 54; RESP 16; O2SAT 100
[2022-04-26 13:23] LABS: MANUAL DIFF FLAG NO
[2022-04-26 13:26] LABS: Basophils Percent Auto 0.2 % (0-2); Eosinophils Percent Auto 0.6 % (0-4); Hemoglobin 13.5 g/dl (14.0-18.0); Lymphocytes Absolute Auto 1.4 X10*3/uL (1.2-4.9); Lymphocytes Percent Auto 30.8 % (20-40); Mean Corpuscular HGB Conc 35.5 g/dl (31.0-36.0); Mean Corpuscular Hemoglobin 31.6 pg (27.0-33.0); Mean Platelet Volume 10.9 fL (9.4-12.4); Monocytes Absolute Auto 0.4 X10*3/uL (0.1-1.2); Monocytes Percent Auto 8.6 % (2-11); Neutrophils Absolute Auto 2.8 x10*3/uL (2.0-8.3); Neutrophils Percent Auto 59.8 % (45-73); Platelet Count 140 X10*3/uL (160-400); Red Blood Count 4.27 X10*6/uL (4.60-5.80); Red Cell Distribution Width 12.7 % (11.0-16.0); White Blood Count 4.6 X10*3/uL (4.8-10.8)
[2022-04-26 13:52] LABS: Troponin-I High Sensitivity < 3.5 ng/L (<3.5-35.0)
[2022-04-26 14:29] LABS: Alanine Aminotransferase 20 U/L (0-40); Albumin Level 4.3 g/dL (3.5-5.0); Alkaline Phosphatase 71 U/L (39-117); Anion Gap 15 (12-20); Aspartate Amino Transferase 22 U/L (5-37); Bilirubin Total 0.5 mg/dL (0.0-1.0); Blood Urea Nitrogen 11 mg/dL (9-16); Calcium 9.5 mg/dL (8.4-10.2); Carbon Dioxide 28 mmol/L (22-29); Chloride 103 mmol/L (96-108); Creatinine Clr Calc Pharmacy 110.1; Estimated Glomerular Filt Rate > 60; Glucose Random 75 mg/dL (60-115); Potassium 3.7 mmol/L (3.3-5.1); Sodium 142 mmol/L (135-145); Total Protein 7.4 g/dL (6.5-8.0)
[2022-04-26 15:29] LABS: Troponin-I High Sensitivity < 3.5 ng/L (<3.5-35.0)
--- NOTE | 2022-04-26 15:51 | PC.NURSE ---
[facility] called and d/c discussed with staff, will come transport home
== END 2022-04-26 16:51 | disposition home or self-care (01) ==
PROVIDERS: Emergency Provider Emergency Medicine; PCP Internal Medicine
DX: R07.89 Other chest pain (principal); Z79.899 Other long term (current) drug therapy
CPT/HCPCS: 36415; 71045; 80053; 84484; 85025; 93005; 99283; 99284

== ENCOUNTER 2023-05-01 13:47 | Outpatient (AMB) | payer MEDICARE, MEDICAID, SELFPAY ==
[2023-05-01 13:50] VITALS: BP 136/72; PULSE 83; O2SAT 98; BMI 25.4
--- NOTE | 2023-05-01 13:50 | MHC.PC.OV ---
Vital Signs 05/01/23 13:50 Height 5 ft 9 in Weight 172 lb BMI 25.4 BP 136/72 Blood Pressure Location Lt brachial Position Sitting Pulse 83 Pulse Source Pulse Oximeter Pulse Oximetry (%) 98 Oxygen Delivery Method Room Air Intake Visit Reasons: Medical Clearance Forms Allergies No Known Allergies Allergy (Verified 05/01/23 13:51) Tobacco use date assessed: 09/30/22 Dental Screening Dental Screen Date: 05/01/23 Did you have a dental visit in the last 12 months?: Yes Did you have a dental problem in the last 6 months where you did not have access to dental care?: No Was dental information given to patient?: Patient has dentist HPI Medical Clearance Forms HPI Details 42-year-old male with Tourette syndrome and mental behavior problem coming in for follow-up. Last seen in September 2022 for physical exam. Patient is going for [employer] and is asking for clearance. [facility] Medical History (Updated 05/01/23 @ 14:16 by Chelsey Park MD) GERD (gastroesophageal reflux disease) Pervasive developmental disorder Tourettes syndrome Mental and behavioral problem Surgical History No pertinent past surgical history Family History (Updated 05/01/23 @ 13:51 by Debbie Espinal CMA) Father Medical history unknown Mother No problems noted. Social History Housing: Other Alcohol intake: never Patient Tobacco Use Status: Never used Tobacco e-Cigarette/Vaping Use: Never Used Second Hand Smoke Exposure: No Current occupational status: disabled Cognitive needs: No Hearing needs: No Vision needs: No Questionnaire PHQ-9 Over the last 2 weeks, how often have you been bothered by any of the following problems? 1. Little interest or pleasure in doing things: not at all 2. Feeling down, depressed, or hopeless: not at all 3. Trouble falling or staying asleep, or sleeping too much: not at all 4. Feeling tired or having little energy: not at all 5. Poor appetite or overeating: not at all 6. Feeling bad about yourself - or that you are a failure or have let yourself or your family down: not at all 7. Trouble concentrating on things, such as reading the newspaper or watching television: not at all 8. Moving or speaking so slowly that other people could have noticed. Or the opposite - being so fidgety or restless that you have been moving around a lot more than usual: not at all 9. Thoughts that you would be better off or of hurting yourself in some way: not at all Total score: 0 Depression Screening Interpretation: Negative Source: Developed by Drs. Ruben Choe, Sherri Andrade, Marty Dunaway and colleagues, with an educational leilani from [employer]. Thrive Questionnaire Date Thrive assessed: 09/30/22 AUDIT C Alcohol Use Questionnaire (AUDIT-C) 1. How often do you have a drink containing alcohol?: Never 3. How often do you have six or more drinks on one occasion?: Never Total Score: 0 MARIELOS-7 AMB Questionnaire MARIELOS-7 Date MARIELOS - 7 assessed: 09/30/22 Feeling nervous, anxious, or on edge: 0 = Not at all Not being able to stop or control worryin = Not at all Worrying too much about different things: 0 = Not at all Trouble relaxin = Not at all Being so restless that it is hard to sit still: 0 = Not at all Becoming easily annoyed or irritable: 0 = Not at all Feeling afraid as if something awful might happen: 0 = Not at all Total MARIELOS-7 score (0-4 normal; 5-9 mild; 10-14 moderate; 15-21 severe): 0 Source: Developed by Drs. Ruben Choe, Sherri Andrade, Marty Dunaway and colleagues, with an educational leilani from [employer]. Physical exam (Primary Care) Vital Signs: Last Vital Signs Pulse 83 05/01/23 13:50 BP 136/72 05/01/23 13:50 Pulse Ox 98 05/01/23 13:50 Oxygen Delivery Method Room Air 05/01/23 13:50 BMI result Body Mass Index 25.4 Tobacco/Smoking Status: Tobacco use Status Tobacco use date assessed 09/30/22 05/01/23 13:55 Patient Tobacco Use Status Never used Tobacco 05/01/23 13:55 e-Cigarette/Vaping Use Never Used 05/01/23 13:55 PHQ-9: PHQ-9 Score PHQ-9: Total score 0 05/01/23 13:55 Depression Screening Interpretation: Negative Thrive Assessment: Date of Thrive Assessment Date Thrive assessed 09/30/22 05/01/23 13:55 Const General: alert; No acute distress Eyes Conjunctivae: conjunctivae normal Resp Auscultation: clear to auscultation bilaterally Cardio Rate: regular rate Rhythm: regular rhythm GI Inspection: Yes normal to inspection Extrem General: Yes normal to inspection and No edema Assessment and Plan Assessment & Plan (1) Tourettes syndrome: Code(s): F95.2 - Tourette's disorder Plan: Continue with follow-up with Psychiatry (2) Mental and behavioral problem: Code(s): F48.9 - Nonpsychotic mental disorder, unspecified; F69 - Unspecified disorder of adult personality and behavior Plan: Continue with counseling and therapy. I do not see any reason to bar the patient from [employer]. Patient is fit physically. (3) GERD (gastroesophageal reflux disease): Code(s): K21.9 - Gastro-esophageal reflux disease without esophagitis Plan: Avoid the foods that causes that usually spicy foods, tomato products, juices, coffee, soda and foods that your sensitive to. After eating do not lie down, allow 3-4 hours before in lie down. And keep the head of bed above 30 degrees to avoid the acid from going up. Coding Level of Care Code Est Pt Level 4 (57965) Diagnoses Tourettes syndrome F95.2 Mental and behavioral problem F48.9; F69 GERD (gastroesophageal reflux disease) K21.9
== END 2023-05-01 14:40 | disposition home or self-care (01) ==
PROVIDERS: PCP Internal Medicine; Visit Provider Internal Medicine
DX: F95.2 Tourette's disorder (principal); F48.9 Nonpsychotic mental disorder, unspecified; F69 Unspecified disorder of adult personality and behavior; K21.9 Gastro-esophageal reflux disease without esophagitis
CPT/HCPCS: 99214

== ENCOUNTER 2023-10-10 10:44 | Outpatient (AMB) | payer MEDICARE, MEDICAID, SELFPAY ==
[2023-10-10 10:56] VITALS: BP 112/60; PULSE 54; O2SAT 99; BMI 25.4
--- NOTE | 2023-10-10 10:56 | A.OFFPC_ITS ---
Vital Signs 10/10/23 10:56 Height 5 ft 9 in Weight 172 lb BMI 25.4 BP 112/60 Blood Pressure Location Lt brachial Position Sitting Pulse 54 Pulse Source Pulse Oximeter Pulse Oximetry (%) 99 Oxygen Delivery Method Room Air Intake Visit Reasons: Annual Exam Intake Note: Patient is here today for a physical. 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 Allergies No Known Allergies Allergy (Verified 05/01/23 13:51) Medication List - Last Reconciled 10/10/23 by Chelsey Park MD aripiprazole (Abilify) 5 mg PO DAILY artifi.tears(hypromellose)(PF) 0.3% 1 drp ophthalmic (eye) TID PRN bacitracin zinc (Antibiotic (bacitracin zinc)) Apply a thin film topical 2 times a day; clonidine HCl 0.4 mg PO 4 pm; docusate sodium (Colace) 100 mg PO DAILY 90 days famotidine 20 mg PO BID guaifenesin (Siltussin SA) 200 mg (10 mL) PO Q4H PRN fecnmmcr-rwo-qwcmitn sulfate 4.5 mg iron (One Daily Multivitamins with Minerals) 1 tab PO QAM quetiapine (Seroquel) 200 mg PO DAILY quetiapine 50 mg PO BEDTIME trazodone 50 mg PO BEDTIME PRN Tobacco use date assessed: 10/10/23 Dental Screening Dental Screen Date: 10/10/23 Did you have a dental visit in the last 12 months?: No Did you have a dental problem in the last 6 months where you did not have access to dental care?: No [facility] Medical History (Updated 05/01/23 @ 14:16 by Chelsey Park MD) GERD (gastroesophageal reflux disease) Pervasive developmental disorder Tourettes syndrome Mental and behavioral problem Surgical History No pertinent past surgical history Family History (Updated 05/01/23 @ 13:51 by Debbie Espinal CMA) Father Medical history unknown Mother No problems noted. Social History Housing: Other Alcohol intake: never Patient Tobacco Use Status: Never used Tobacco e-Cigarette/Vaping Use: Never Used Second Hand Smoke Exposure: No Current occupational status: disabled Cognitive needs: No Hearing needs: No Vision needs: No Questionnaire PHQ-9 Over the last 2 weeks, how often have you been bothered by any of the following problems? 1. Little interest or pleasure in doing things: not at all 2. Feeling down, depressed, or hopeless: not at all 3. Trouble falling or staying asleep, or sleeping too much: not at all 4. Feeling tired or having little energy: not at all 5. Poor appetite or overeating: not at all 6. Feeling bad about yourself - or that you are a failure or have let yourself or your family down: not at all 7. Trouble concentrating on things, such as reading the newspaper or watching television: not at all 8. Moving or speaking so slowly that other people could have noticed. Or the opposite - being so fidgety or restless that you have been moving around a lot more than usual: not at all 9. Thoughts that you would be better off or of hurting yourself in some way: not at all Total score: 0 Depression Screening Interpretation: Negative Depression Screening Done: Yes Source: Developed by Drs. Ruben Choe, Sherri Andrade, Marty Dunaway and colleagues, with an educational leilani from [employer]. Thrive Questionnaire Date Thrive assessed: 10/10/23 AUDIT C Alcohol Use Questionnaire (AUDIT-C) 1. How often do you have a drink containing alcohol?: Never 3. How often do you have six or more drinks on one occasion?: Never Total Score: 0 MARIELOS-7 AMB Questionnaire MARIELOS-7 Date MARIELOS - 7 assessed: 10/10/23 Feeling nervous, anxious, or on edge: 0 = Not at all Not being able to stop or control worryin = Not at all Worrying too much about different things: 0 = Not at all Trouble relaxin = Not at all Being so restless that it is hard to sit still: 0 = Not at all Becoming easily annoyed or irritable: 0 = Not at all Feeling afraid as if something awful might happen: 0 = Not at all Total MARIELOS-7 score (0-4 normal; 5-9 mild; 10-14 moderate; 15-21 severe): 0 Source: Developed by Drs. Ruben Choe, Sherri B.W. Marty Andrade and colleagues, with an educational leilani from [employer]. Review of Systems Const Denies poor appetite and Denies weakness Eyes Denies no additional complaints ENT Reports Normal hearing present, Denies dizziness, Denies nasal congestion, Denie s tinnitus and Denies sore throat Card Denies chest pain, Denies syncope, Denies rapid heart rate and Denies dyspnea Resp Denies cough and Denies dyspnea GI Denies change in stool character, Reports constipation, Denies diarrhea, Denies nausea and Denies vomiting Denies dysuria and Denies urinary frequency Neuro Reports Normal hearing present, Denies confusion, Denies dizziness, Denies syncope and Denies weakness Psych Denies confusion Physical exam (Primary Care) Vital Signs: Last Vital Signs Pulse 54 10/10/23 10:56 BP 112/60 10/10/23 10:56 Pulse Ox 99 10/10/23 10:56 Oxygen Delivery Method Room Air 10/10/23 10:56 BMI result Body Mass Index 25.4 Tobacco/Smoking Status: Tobacco use Status Tobacco use date assessed 10/10/23 10/10/23 10:57 Patient Tobacco Use Status Never used Tobacco 10/10/23 10:57 e-Cigarette/Vaping Use Never Used 10/10/23 10:57 PHQ-9: PHQ-9 Score PHQ-9: Total score 0 10/10/23 11:36 Depression Screening Interpretation: Negative Thrive Assessment: Date of Thrive Assessment Date Thrive assessed 10/10/23 10/10/23 10:57 Const General: No confusion Orientation/consciousness: No confusion HENMT Other: Impacted cerumen bilateral Head: Yes normocephalic Ears: external ears normal Face and sinus: Yes normal facial exam Mouth: moist mucous membranes Throat: Yes tonsils normal Eyes Conjunctivae: conjunctivae normal Pupils: Equal, round and reactive pupils present and Pupil accommodation reflex normal Direct Ophthalmoscopy: normal light reflex Neck Neck: No lymphadenopathy Thyroid: Thyroid normal Chest Chest palpation & inspection: normal inspection of the chest Resp Effort & Inspection: normal respiratory effort and no audible wheezes Auscultation: clear to auscultation bilaterally, no crackles, no wheezes and lung sounds not diminished Cardio Rate: regular rate Rhythm: regular rhythm Peripheral pulses: radial pulses present and dorsalis pedis present GI Palpation (GI): no masses Auscultation: normal bowel sounds and normoactive bowel sounds Rectal Exam - Male: Yes deferred Skin General skin exam: no rashes or lesions noted Rashes: no rashes Neuro General: No confusion Cranial nerves: Yes Equal, round and reactive pupils present and Yes Normal hearing present Cognition (Neuro): normal cognition Gait exam (Neuro): Normal gait present Motor exam (neuro): 5/5 motor strength present throughout Deep tendon reflexes (DTR's): Right brachioradialis reflex intensity grade: 2+, Left brachioradialis reflex intensity grade: 2+, Right patellar reflex intensity grade: 2+ and Left patellar reflex intensity grade: 2+ Extrem General: No edema Assessment and Plan Assessment & Plan (1) Annual physical exam: Code(s): Z00.00 - Encounter for general adult medical examination without abnormal findings Plan: Continue with present medication, keep well hydrated, keep active and eat healthy (2) Tourettes syndrome: Code(s): F95.2 - Tourette's disorder Plan: , continue with present medication (3) Mental and behavioral problem: Code(s): F48.9 - Nonpsychotic mental disorder, unspecified; F69 - Unspecified disorder of adult personality and behavior Plan: Continue to follow-up with psychiatry and counseling (4) GERD (gastroesophageal reflux disease): Code(s): K21.9 - Gastro-esophageal reflux disease without esophagitis Plan: Avoid the foods that causes that usually spicy foods, tomato products, juices, coffee, soda and foods that your sensitive to. After eating do not lie down, allow 3-4 hours before in lie down. And keep the head of bed above 30 degrees to avoid the acid from going up. (5) Anemia: Code(s): D64.9 - Anemia, unspecified Plan: retesting and blood work requested (6) Impacted cerumen of both ears: Code(s): H61.23 - Impacted cerumen, bilateral Plan: schedule for ear irrigation Orders: Orders Complete Blood Count Auto Diff Today D64.9 - Anemia, unspecified Comprehensive Met. Panel Today D64.9 - Anemia, unspecified IRON PROFILE Today D64.9 - Anemia, unspecified Vitamin B12 and Folate Today D64.9 - Anemia, unspecified Free T4 (Free Thyroxine) Today D64.9 - Anemia, unspecified Lipid Panel Today D64.9 - Anemia, unspecified, E78.00 - Pure hypercholesterolemia, unspecified Ferritin Today D64.9 - Anemia, unspecified Reticulocyte Count Today D64.9 - Anemia, unspecified Thyroid Stimulating Hormone Today D64.9 - Anemia, unspecified Coding Level of Care Code Est Pt Prev Care 40-64y(55440) Diagnoses Annual physical exam Z00.00 Tourettes syndrome F95.2 Mental and behavioral problem F48.9; F69 GERD (gastroesophageal reflux disease) K21.9 Anemia D64.9 Impacted cerumen of both ears H61.23
== END 2023-10-10 12:09 | disposition home or self-care (01) ==
PROVIDERS: Visit Provider Internal Medicine
DX: Z00.00 Encounter for general adult medical examination without abnormal findings (principal); F95.2 Tourette's disorder; F48.9 Nonpsychotic mental disorder, unspecified; F69 Unspecified disorder of adult personality and behavior; K21.9 Gastro-esophageal reflux disease without esophagitis; D64.9 Anemia, unspecified; H61.23 Impacted cerumen, bilateral
CPT/HCPCS: 99396

== ENCOUNTER 2023-10-14 09:35 | Outpatient (REF) | payer MEDICARE, MEDICAID, SELFPAY ==
[2023-10-14 11:00] LABS: MANUAL DIFF FLAG NO
[2023-10-14 11:25] LABS: Basophils Percent Auto 0.2 % (0-2); Eosinophils Percent Auto 0.4 % (0-4); Hematocrit 43.2 % (42.0-52.0); Hemoglobin 15.4 g/dl (14.0-18.0); Imm Gran Abs Auto 0.01 X10*3/uL (0.00-0.03); Imm Gran Pct Auto 0.2 % (0.0-0.4); Immature Retic Fraction 5.9 % (2.3-13.4); Lymphocytes Absolute Auto 1.6 X10*3/uL (1.2-4.9); Lymphocytes Percent Auto 29.1 % (20-40); Mean Corpuscular HGB Conc 35.6 g/dl (31.0-36.0); Mean Corpuscular Hemoglobin 32.2 pg (27.0-33.0); Mean Corpuscular Volume 90.4 fL (80.0-98.0); Mean Platelet Volume 11.7 fL (9.4-12.4); Monocytes Absolute Auto 0.4 X10*3/uL (0.1-1.2); Monocytes Percent Auto 7.9 % (2-11); Neutrophils Absolute Auto 3.4 x10*3/uL (2.0-8.3); Neutrophils Percent Auto 62.2 % (45-73); Platelet Count 147 X10*3/uL (160-400); Red Blood Count 4.78 X10*6/uL (4.60-5.80); Red Cell Distribution Width 12.3 % (11.0-16.0); Retic HGB Equivalent 35.4 pg (30.0-35.0); Reticulocytes Absolute 0.056 X10*6/uL (0.026-0.095); White Blood Count 5.4 X10*3/uL (4.8-10.8)
[2023-10-14 11:26] LABS: RET ABN SCTR 1
[2023-10-14 11:28] LABS: Reticulocyte Percent 0.1 % (0.5-1.8)
[2023-10-14 11:45] LABS: Ferritin 77 ng/mL (20-250); Free T4 (Free Thyroxine) 0.85 ng/dL (0.71-1.85); Thyroid Stimulating Hormone 0.59 uIU/mL (0.32-4.0)
[2023-10-14 11:53] LABS: Alanine Aminotransferase 18 U/L (0-40); Albumin Level 4.7 g/dL (3.5-5.0); Alkaline Phosphatase 80 U/L (39-117); Anion Gap 18 (12-20); Aspartate Amino Transferase 44 U/L (5-37); Bilirubin Total 0.5 mg/dL (0.0-1.0); Blood Urea Nitrogen 20 mg/dL (9-16); Calcium 9.7 mg/dL (8.4-10.2); Carbon Dioxide 23 mmol/L (22-29); Chloride 104 mmol/L (96-108); Cholesterol 198 mg/dL (<200); Estimated Glomerular Filt Rate > 60; Glucose Random 80 mg/dL (60-115); HDL Cholesterol 43 mg/dL (>40); Iron 103 mcg/dL (45-160); LDL Cholesterol Calculated 145 mg/dL (<100); Percent Iron Saturation 40 % (15-50); Potassium 4.6 mmol/L (3.3-5.1); Sodium 140 mmol/L (135-145); Total Iron Binding Capacity 260 mcg/dL (228-428); Total Protein 9.1 g/dL (6.5-8.0); Triglycerides 53 mg/dL (<150); Unsaturated Iron Binding 157 ug/dL
[2023-10-14 11:55] LABS: Folate 10.9 ng/mL (> or = 4.0); Vitamin B12 445 pg/mL (200-900)
== END 2023-10-14 09:36 | disposition home or self-care (01) ==
LOC: HO.HMGCLDS 09:35
PROVIDERS: PCP Internal Medicine; Visit Provider Internal Medicine
DX: D64.9 Anemia, unspecified (principal); E78.00 Pure hypercholesterolemia, unspecified
CPT/HCPCS: 36415; 80053; 80061; 82607; 82728; 82746; 83540; 84439; 84443; 85025; 85045

== ENCOUNTER 2023-11-01 08:06 | Outpatient (REF) | payer MEDICARE, MEDICAID, SELFPAY ==
--- NOTE | ~2023-11-01 | US_ITS ---
EXAMINATION: US ABDOMEN LIMITED CLINICAL INFORMATION: Other specified abnormal findings of blood chemistry. COMPARISON: None available. TECHNIQUE: Real-time imaging of the right upper quadrant abdominal viscera. FINDINGS: PANCREAS: Normal. LIVER: The liver is normal in size. The liver contour is normal. Mildly increased hepatic echogenicity which can be seen in the setting of hepatic steatosis or underlying liver disease. No focal hepatic lesion. There is no intrahepatic biliary duct dilatation seen. GALLBLADDER: 2 mm gallbladder polyp. The gallbladder is physiologically distended without evidence of stones, sludge, wall thickening or pericholecystic fluid. COMMON BILE DUCT: Normal in caliber measuring 0.32 cm in diameter. RIGHT KIDNEY: Normal. No hydronephrosis. No renal calculi or focal parenchymal lesions. The kidney measures 10.5 cm in maximum dimension. FREE FLUID: None. US/US abdomen limited IMPRESSION: * Mildly increased hepatic echogenicity which can be seen in the setting of hepatic steatosis or underlying liver disease. * A 2 mm gallbladder polyp. Recommend annual follow-up ultrasound to document 5 years stability.
== END 2023-11-01 08:07 | disposition home or self-care (01) ==
LOC: HO.US 08:06
PROVIDERS: PCP Internal Medicine; Visit Provider Internal Medicine
DX: R79.89 Other specified abnormal findings of blood chemistry (principal)
CPT/HCPCS: 76705

== ENCOUNTER 2023-11-18 08:00 | Outpatient (REF) | payer MEDICARE, MEDICAID, SELFPAY ==
[2023-11-18 11:27] LABS: Alanine Aminotransferase 24 U/L (0-40); Albumin Level 4.4 g/dL (3.5-5.0); Alkaline Phosphatase 81 U/L (39-117); Anion Gap 11 (12-20); Aspartate Amino Transferase 22 U/L (5-37); Bilirubin Total 0.4 mg/dL (0.0-1.0); Blood Urea Nitrogen 11 mg/dL (9-16); Calcium 9.2 mg/dL (8.4-10.2); Carbon Dioxide 28 mmol/L (22-29); Chloride 103 mmol/L (96-108); Estimated Glomerular Filt Rate > 60; Glucose Random 96 mg/dL (60-115); Potassium 3.9 mmol/L (3.3-5.1); Sodium 138 mmol/L (135-145); Total Protein 7.8 g/dL (6.5-8.0)
[2023-11-20 08:50] LABS: HBS Num1 2.61 mIU/mL (0-7.99); HBc Num1 0.17 S/CO (0.00-0.79); HBsAGNum1 0.43 S/CO (0.00-0.99); Hepatitis B Core Antibody Nonreactive (Nonreactive); Hepatitis B Surface Antigen Negative (Negative); ~HepC Num1 0.32 S/CO (0.00-0.79); ~Hepatitis B Surface Antibody NONREACTIVE (Nonreactive); ~Hepatitis C Antibody Nonreactive (Nonreactive)
== END 2023-11-18 08:01 | disposition home or self-care (01) ==
LOC: HO.HMGCLDS 08:00
PROVIDERS: PCP Internal Medicine; Visit Provider Internal Medicine
DX: R79.89 Other specified abnormal findings of blood chemistry (principal)
CPT/HCPCS: 36415; 80053; 86704; 86706; 86803; 87340

== ENCOUNTER 2023-12-01 10:07 | Outpatient (AMB) | payer MEDICARE, MEDICAID, SELFPAY ==
[2023-12-01 10:10] VITALS: BP 126/80; PULSE 88; O2SAT 97; BMI 26.1
--- NOTE | 2023-12-01 10:10 | MHC.PC.OV ---
Vital Signs 12/01/23 10:10 Height 5 ft 9 in Weight 177 lb 0.2 oz BMI 26.1 BP 126/80 Blood Pressure Location Lt brachial Position Sitting Pulse 88 Pulse Source Pulse Oximeter Pulse Oximetry (%) 97 Oxygen Delivery Method Room Air Intake Visit Reasons: ear irrigation Manager Completions Required: No Allergies No Known Allergies Allergy (Verified 12/01/23 10:14) Medication List - Last Reconciled 12/01/23 by Chelsey Park MD acetaminophen 1,000 mg (2 x 500 mg) PO TID PRN aripiprazole (Abilify) 5 mg PO DAILY artifi.tears(hypromellose)(PF) 0.3% 1 drp ophthalmic (eye) TID PRN bacitracin zinc (Antibiotic (bacitracin zinc)) Apply a thin film topical 2 times a day; clonidine HCl 0.4 mg PO 4 pm; docusate sodium (Colace) 100 mg PO DAILY 90 days famotidine 20 mg PO BID guaifenesin (Siltussin SA) 200 mg (10 mL) PO Q4H PRN usjyopxs-wwv-reegkud sulfate 4.5 mg iron (One Daily Multivitamins with Minerals) 1 tab PO QAM quetiapine (Seroquel) 200 mg PO DAILY quetiapine 50 mg PO BEDTIME trazodone 50 mg PO BEDTIME PRN Tobacco use date assessed: 12/01/23 Dental Screening Dental Screen Date: 10/10/23 HPI ear irrigation HPI Details 43-year-old male with mental behavior problem coming in for ear irrigation. Patient had blood work done and is here to follow-up on them. Noted to have elevated liver function test as well as anemia and retesting showed that anemia has resolved and the liver function elevation has resolved tear. Ultrasound of the abdomen done showing gallbladder polyp and hepatic steatosis. [facility] Medical History (Updated 11/03/23 @ 18:31 by Chelsey Park MD) GERD (gastroesophageal reflux disease) Pervasive developmental disorder Tourettes syndrome Mental and behavioral problem Surgical History No pertinent past surgical history Family History (Updated 05/01/23 @ 13:51 by Debbie Espinal CMA) Father Medical history unknown Mother No problems noted. Social History Housing: Other Alcohol intake: never Patient Tobacco Use Status: Never used Tobacco e-Cigarette/Vaping Use: Never Used Second Hand Smoke Exposure: No Current occupational status: disabled Cognitive needs: No Hearing needs: No Vision needs: No Questionnaire Thrive Questionnaire Date Thrive assessed: 10/10/23 AUDIT C Alcohol Use Questionnaire (AUDIT-C) 1. How often do you have a drink containing alcohol?: Never 3. How often do you have six or more drinks on one occasion?: Never Total Score: 0 MARIELOS-7 AMB Questionnaire MARIELOS-7 Date MARIELOS - 7 assessed: 10/10/23 Source: Developed by Drs. Ruben Choe, Sherri Andrade, Marty Dunaway and colleagues, with an educational leilani from [employer]. Physical exam (Primary Care) Vital Signs: Last Vital Signs Pulse 88 12/01/23 10:10 BP 126/80 12/01/23 10:10 Pulse Ox 97 12/01/23 10:10 Oxygen Delivery Method Room Air 12/01/23 10:10 BMI result Body Mass Index 26.1 Tobacco/Smoking Status: Tobacco use Status Tobacco use date assessed 12/01/23 12/01/23 10:10 Patient Tobacco Use Status Never used Tobacco 12/01/23 10:10 e-Cigarette/Vaping Use Never Used 12/01/23 10:10 Thrive Assessment: Date of Thrive Assessment Date Thrive assessed 10/10/23 12/01/23 10:10 Const Other: impacted cerumen bilateral Office Procedures Cerumen Removal From which ear canal was the cerumen removed: bilateral Removal: irrigation, otoscope w/curette, cerumen loop/spoon and other Notes: patient tolerated procedure well, no complications and ear canal clear [id number] Irrigation/Lavage Assessment and Plan Assessment & Plan (1) Impacted cerumen of both ears: Code(s): H61.23 - Impacted cerumen, bilateral Plan: irrigation done used scoop and otoscope used bilateral TM intact (2) Hypercholesterolemia: Code(s): E78.00 - Pure hypercholesterolemia, unspecified Plan: Avoid fried foods, chicken skin, eggs, butter margarine, pastries and meat. Be it pork or beef they have a lot of cholesterol. LDL goal of less than 130 and triglyceride of less than 150. (3) Hepatic steatosis: Comment: October 2023 Code(s): K76.0 - Fatty (change of) liver, not elsewhere classified Plan: Discussed about low-fat diet and exercise (4) Gallbladder polyp: Comment: October 2023 year 1 yearly Code(s): K82.4 - Cholesterolosis of gallbladder Plan: Patient has been advised to have yearly ultrasound for 5 years. Medications: New acetaminophen 1,000 mg (2 x 500 mg) PO TID PRN 30 caps 0RF pain Refilled guaifenesin (Siltussin SA) 200 mg (10 mL) PO Q4H PRN 118 mL 11RF for cough Coding Level of Care Code Est Pt Level 4 (78252) Diagnoses Impacted cerumen of both ears H61.23 Hypercholesterolemia E78.00 Hepatic steatosis K76.0 Gallbladder polyp K82.4 CPT Codes Office Procedure - CPT: 97370-Dto Irrigation/Lavage ([id number])
== END 2023-12-01 13:22 | disposition home or self-care (01) ==
PROVIDERS: PCP Internal Medicine; Visit Provider Internal Medicine
DX: H61.23 Impacted cerumen, bilateral (principal); E78.00 Pure hypercholesterolemia, unspecified; K76.0 Fatty (change of) liver, not elsewhere classified; K82.4 Cholesterolosis of gallbladder
CPT/HCPCS: 69210; 99214

== ENCOUNTER 2024-04-19 10:40 | Outpatient (AMB) | payer MEDICARE, MEDICAID, SELFPAY ==
--- NOTE | 2024-04-19 10:44 | MHC.PC.OV ---
Vital Signs 04/19/24 10:45 Height 5 ft 9 in Weight 166 lb 2 oz BMI 24.5 BP 110/68 Blood Pressure Location Lt brachial Position Sitting Pulse 64 Pulse Source Pulse Oximeter Pulse Oximetry (%) 97 Oxygen Delivery Method Room Air Intake Visit Reasons: 4M follow up Intake Note: Patient is here to follow up on GERD, Hypercholesterolemia. 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 Last seen in November 2023. Noted weight loss [facility] Medical History (Updated 11/03/23 @ 18:31 by Chelsey Park MD) GERD (gastroesophageal reflux disease) Pervasive developmental disorder Tourettes syndrome Mental and behavioral problem Surgical History No pertinent past surgical history Family History Father Medical history unknown Mother No problems noted. Social History Housing: Other (long-term) Alcohol intake: never Patient Tobacco Use Status: Never used Tobacco e-Cigarette/Vaping Use: Never Used Second Hand Smoke Exposure: No service: No Current occupational status: disabled Cognitive needs: No Hearing needs: No Vision needs: No Questionnaire Thrive Questionnaire Date Thrive assessed: 10/10/23 MARIELOS-7 AMB Questionnaire MARIELOS-7 Date MARIELOS - 7 assessed: 10/10/23 Source: Developed by Drs. Ruben Choe, Sherri Andrade, Marty Dunaway and colleagues, with an educational leilani from [employer]. Physical exam (Primary Care) Vital Signs: Last Vital Signs Pulse 64 04/19/24 10:45 BP 110/68 04/19/24 10:45 Pulse Ox 97 04/19/24 10:45 Oxygen Delivery Method Room Air 04/19/24 10:45 BMI result Body Mass Index 24.5 Tobacco/Smoking Status: Tobacco use Status Tobacco use date assessed 04/19/24 04/19/24 10:49 Patient Tobacco Use Status Never used Tobacco 04/19/24 10:49 e-Cigarette/Vaping Use Never Used 04/19/24 10:49 Thrive Assessment: Date of Thrive Assessment Date Thrive assessed 10/10/23 04/19/24 10:49 Const General: alert; No acute distress Eyes Conjunctivae: conjunctivae normal Resp Auscultation: clear to auscultation bilaterally Cardio Rate: regular rate Rhythm: regular rhythm GI Inspection: Yes normal to inspection Extrem General: Yes normal to inspection and No edema Assessment and Plan Assessment & Plan (1) Hepatic steatosis: Comment: October 2023 Code(s): K76.0 - Fatty (change of) liver, not elsewhere classified Plan: Low-fat diet and exercise (2) Gallbladder polyp: Comment: October 2023 year 1 yearly Code(s): K82.4 - Cholesterolosis of gallbladder Plan: Will continue to follow-up this in 10/2024 (3) Hypercholesterolemia: Code(s): E78.00 - Pure hypercholesterolemia, unspecified Plan: Avoid fried foods, chicken skin, eggs, butter margarine, pastries and meat. Be it pork or beef they have a lot of cholesterol LDL goal of less than 130 and triglyceride of less than 150 (4) Tourettes syndrome: Code(s): F95.2 - Tourette's disorder Plan: Continue to follow-up with psychiatry (5) Mental and behavioral problem: Code(s): F48.9 - Nonpsychotic mental disorder, unspecified; F69 - Unspecified disorder of adult personality and behavior Plan: Continue to follow-up with psychiatry (6) GERD (gastroesophageal reflux disease): Code(s): K21.9 - Gastro-esophageal reflux disease without esophagitis Plan: Avoid the foods that causes that usually spicy foods, tomato products, juices, coffee, soda and foods that your sensitive to. After eating do not lie down, allow 3-4 hours before in lie down. And keep the head of bed above 30 degrees to avoid the acid from going up. Coding Level of Care Code Est Pt Level 4 (10228) Diagnoses Hepatic steatosis K76.0 Gallbladder polyp K82.4 Hypercholesterolemia E78.00 Tourettes syndrome F95.2 Mental and behavioral problem F48.9; F69 GERD (gastroesophageal reflux disease) K21.9
[2024-04-19 10:45] VITALS: BP 110/68; PULSE 64; O2SAT 97; BMI 24.5
== END 2024-04-19 11:40 | disposition home or self-care (01) ==
PROVIDERS: PCP Internal Medicine; Visit Provider Internal Medicine
DX: K76.0 Fatty (change of) liver, not elsewhere classified (principal); K82.4 Cholesterolosis of gallbladder; E78.00 Pure hypercholesterolemia, unspecified; F95.2 Tourette's disorder; F48.9 Nonpsychotic mental disorder, unspecified; F69 Unspecified disorder of adult personality and behavior; K21.9 Gastro-esophageal reflux disease without esophagitis
CPT/HCPCS: 99214

== ENCOUNTER 2024-05-15 09:40 | Outpatient (AMB) | payer MEDICARE, MEDICAID, SELFPAY ==
[2024-05-15 09:41] VITALS: BP 116/68; PULSE 67; O2SAT 98; BMI 24.7
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
== END 2024-05-15 10:01 | disposition home or self-care (01) ==
PROVIDERS: PCP Internal Medicine
DX: Z71.1 Person with feared health complaint in whom no diagnosis is made (principal); V89.2XXA Person injured in unspecified motor-vehicle accident, traffic, initial encounter

== ENCOUNTER → 2024-05-15 09:40 | Outpatient (BNVA) | payer MEDICARE, MEDICAID, SELFPAY | PROVIDERS: PCP Internal Medicine | DX: F95.2 Tourette's disorder (principal); E78.00 Pure hypercholesterolemia, unspecified; V89.2XXD Person injured in unspecified motor-vehicle accident, traffic, subsequent encounter | CPT/HCPCS: 99212 ==

== ENCOUNTER 2024-05-31 09:26 | Outpatient (AMB) | payer MEDICARE, MEDICAID, SELFPAY ==
--- NOTE | 2024-05-31 09:30 | AM.OFFVISNUR ---
Intake Visit Reasons: Flu Shot Allergies No Known Allergies Allergy (Verified 05/15/24 09:42) Office Procedures Flu Questionnaire Does the patient have a severe egg allergy?: No Does the patient have severe life threatening allergies?: No Does the patient have a fever or illness today?: No Has the patient ever had Guillain-[place] Syndrome?: No Has the patient ever had any past reaction to a flu shot?: No Assessment & Plan Assessment & Plan Orders: Orders Influenza [id number] Immunization Today Z23 - Encounter for immunization Medications: New Fluarix Triv [id number] (PF) (flu vacc [id number] 6mos up(PF)) 0.5 mL IM ONCE 0.5 mL 0RF NS Z23 - Encounter for immunization
== END 2024-05-31 09:39 | disposition home or self-care (01) ==
PROVIDERS: PCP Internal Medicine; Visit Provider Internal Medicine
DX: Z23 Encounter for immunization (principal)

== ENCOUNTER → 2024-05-31 09:26 | Outpatient (BNVA) | payer MEDICARE, MEDICAID, SELFPAY | PROVIDERS: PCP Internal Medicine; Visit Provider Internal Medicine | DX: Z23 Encounter for immunization (principal) | CPT/HCPCS: 90471; 90656 ==

== ENCOUNTER 2024-09-19 16:16 | Emergency (ER) | payer MEDICARE, MEDICAID, SELFPAY ==
--- NOTE | 2024-09-19 | ECG_ITS ---
Test Reason : MEDICAL CLEARANCE Blood Pressure : */* mmHG Vent. Rate : 54 BPM Atrial Rate : 54 BPM P-R Int : 160 ms QRS Dur : 84 ms QT Int : 416 ms P-R-T Axes : 63 21 27 degrees QTcB Int : 394 ms Sinus bradycardia with sinus arrhythmia Otherwise normal ECG When compared with ECG of 26-Apr-2022 12:23, No significant change was found Referred By: Dina Barillas Electronically Signed By: NEYDA WOLF
--- NOTE | 2024-09-19 16:24 | ED_ITS ---
HPI - Psych General Chief Complaint: Psychiatric Symptoms Stated Complaint: section 12, si Time Seen by Provider: 09/19/24 16:18 Source: patient and EMS Mode of arrival: EMS Limitations: no limitations History of Present Illness ED Provider: Dr. Dina Barillas HPI Narrative: Patient comes to the emergency room via ambulance from a skilled nursing. Earlier today, patient states that he was very angry and frustrated with the situation. Patient admits that he grabbed electric cord and wrapped it around his neck. Patient states that he is not suicidal or homicidal. Patient states that he was just very angry and did not how to express his frustration. Patient states that he has never attempted to hurt himself in the past. At this time, patient reports feeling much better, calm, not angry, no SI, no HI. Related Data Home Medications ?Medication ?Instructions ?Recorded ?Confirmed aripiprazole 5 mg tablet (Abilify) 5 mg PO DAILY 09/24/20 05/15/24 quetiapine 200 mg tablet (Seroquel) 200 mg PO DAILY 09/24/20 05/15/24 clonidine HCl 0.2 mg tablet See Rx Instructions PO BEDTIME 09/30/22 05/15/24 trazodone 50 mg tablet 50 mg PO BEDTIME PRN 09/30/22 05/15/24 quetiapine 50 mg tablet 50 mg PO BEDTIME 10/10/23 05/15/24 Previous Rx's ?Medication ?Instructions ?Recorded acetaminophen 500 mg capsule 1,000 mg (2 x 500 mg) PO TID PRN 05/15/24 pain #30 caps artifi.tears(hypromellose)(PF) 0.3 1 drp ophthalmic (eye) TID PRN dry 05/15/24 % eye drops eye(s) #10 mL docusate sodium 100 mg capsule 100 mg PO DAILY 90 days #90 caps 05/15/24 (Colace) famotidine 20 mg tablet 20 mg PO BID #180 tabs 05/15/24 guaifenesin 100 mg/5 mL oral 200 mg (10 mL) PO Q4H PRN for 05/15/24 liquid (Siltussin SA) cough #118 mL carboxymethylcellulose sodium 0.5 1 drp ophthalmic (eye) BID PRN dry 05/21/24 % eye drops in a dropperette eye(s) #30 ea (Refresh Plus) multivitamin with minerals-ferrous 1 tab PO QAM #90 tabs 08/20/24 sulfate 4.5 mg iron tablet (One Daily Multivitamins with Minerals) Allergies Allergy/AdvReac Type Severity Reaction Status Date / Time No Known Allergies Allergy Verified 09/19/24 16:28 Review of Systems 2 Review of Systems: Constitutional : No Weight loss, No Fever, No Chills, No Night Sweats, No Fatigue, No Malaise ENT/Mouth : No Hearing loss, No Ear Pain, No Nasal Congestion, No Sinus Pain, No Hoarseness, No sore throat, No Rhinorrhea, No Swallowing Difficulty Eyes: No Eye Pain, No Swelling, No Redness, No Foreign Body, No Discharge, No Vision Changes Cardiovascular : No Chest Pain, No SOB, No Dyspnea on Exertion, No Orthopnea, No Edema, No Palpitations Respiratory : No Cough, No Sputum, No Wheezing, No Smoke Exposure, No Dyspnea Gastrointestinal : No Nausea, No Vomiting, No Diarrhea, No Constipation, No abdominal Pain, No Hematochezia, No Melena Genitourinary : no irregular bleeding, No Dysuria, No Urinary Frequency, No Hematuria, No Urinary Incontinence, No Urgency, No Flank Pain, No Urinary Flow Changes, No Hesitancy Musculoskeletal : No joint pain, No Myalgias, No Joint Swelling Skin : No Skin Lesions, No rash Neuro : No Weakness, No Numbness, No Paresthesias, No Loss of Consciousness, No Dizziness, No Headache Psych : Complaining of anxiety, frustration, denies SI or HI Heme/Lymph: No Bruising, No Bleeding,No Lymphadenopathy Endocrine : No Polyuria, No Polydipsia, No Temperature Intolerance PMFSH Past Medical History Medical History GERD (gastroesophageal reflux disease) Pervasive developmental disorder Tourettes syndrome Mental and behavioral problem Surgical History No pertinent past surgical history Family History Family History Father Medical history unknown Mother No problems noted. Social History Social History Housing: Other Alcohol intake: never Patient Tobacco Use Status: Never used Tobacco Smoked in Last 30 Days: No e-Cigarette/Vaping Use: Never Used Second Hand Smoke Exposure: No Use of substances other than those prescribed or required for medical reasons: No Do you have a plan to hurt others: No Plan service: No Current occupational status: disabled Cognitive needs: No Hearing needs: No Vision needs: No Physical Exam 2 Vital Signs: Vital Signs: Last Vital Signs Temp 98.6 F 09/19/24 16:26 Pulse 72 09/19/24 16:26 Resp 16 09/19/24 16:26 BP 141/79 H 09/19/24 16:26 Pulse Ox 96 09/19/24 16:26 O2 Del Method Room Air 09/19/24 16:26 BMI result Body Mass Index 25.8 Const: Other: Appearance: Alert. Oriented X3. No acute distress. Eyes: Pupils equal, round and reactive to light. ENT: Pharynx normal. Neck: Normal inspection. Neck supple. No lymph nodes noted. No crepitus CVS: Normal heart rate and rhythm. Pulses normal. Normal S1 and S2 Respiratory: No respiratory distress. Breath sounds normal. No Wheezing. No rales Abdomen: Soft and nontender. No rigidity. No distention. Skin: Skin warm and dry. Normal skin color. Normal skin turgor. Extremities: No lower extremity edema. No Lacerations. No Rash Neuro: Oriented X 3. No motor deficit. No sensory deficit. Moving all extremities. No slurred speech. CN 2 through 12 grossly intact Psych: calm, cooperative, normal affect Course Course Course Narrative: All Of patient's labs pending Care team consult pending Physician observation started at 16:30 Medical Decision Making Medical Decision Making [facility] Narrative: My interpretation of labs, no significant abnormality in patient's hematology chemistry or toxicology. The care team evaluated the patient. They also spoke with the patient's skilled nursing. Seems that this was more behavioral rather than psychiatric. Patient is not SI, no HI, calm and cooperative. Patient's skilled nursing is when it take him back. Patient being discharged. Differential Diagnosis Differential Diagnoses: The differential diagnosis associated with the presentation includes (Anxiety, depression, anger reaction) Admission/Observation Consideration of admission/observation: Escalation of care including admission/observation considered (Patient is waiting to be seen by the care team to determine his disposition.) Lab Data [facility] Lab Attestation statement: I reviewed the patient's lab results. 09/19/24 16:38 09/19/24 16:38 Labs: Lab Results 09/19/24 09/19/24 Range/Units 16:38 17:05 WBC 6.5 (4.8-10.8) X10*3/uL RBC 4.70 (4.60-5.80) X10*6/uL Hgb 14.8 (14.0-18.0) g/dl Hct 41.5 L (42.0-52.0) % MCV 88.3 (80.0-98.0) fL MCH 31.5 (27.0-33.0) pg MCHC 35.7 (31.0-36.0) g/dl RDW 12.3 (11.0-16.0) % Plt Count 167 (160-400) X10*3/uL MPV 10.7 (9.4-12.4) fL Immature Gran % (Auto) 0.3 (0.0-0.4) % Neut % (Auto) 54.2 (45-73) % Lymph % (Auto) 35.4 (20-40) % Nash % (Auto) 8.4 (2-11) % Eos % (Auto) 1.5 (0-4) % Baso % (Auto) 0.2 (0-2) % Lymph # (Auto) 2.3 (1.2-4.9) X10*3/uL Nash # (Auto) 0.6 (0.1-1.2) X10*3/uL Eos # (Auto) 0.1 (0.0-0.4) X10*3/uL Baso # (Auto) 0.0 (0.0-0.2) X10*3/uL Abs Immat Gran (auto) 0.02 (0.00-0.03) X10*3/uL Absolute Neuts (auto) 3.5 (2.0-8.3) x10*3/uL Absolute Nucleated RBC 0.000 (0.0-0.012) X10*3/uL Nucleated RBC % (auto) 0.0 (0.0-0.2) /100WBC Sodium 140 (135-145) mmol/L Potassium 3.8 (3.3-5.1) mmol/L Chloride 105 (96-108) mmol/L Carbon Dioxide 25 (22-29) mmol/L Anion Gap 14 (12-20) BUN 15 (9-16) mg/dL Creatinine 0.95 (0.5-1.4) mg/dL Estim Creat Clear Calc 99.0 Estimated GFR > 60 Random Glucose 96 (60-115) mg/dL Calcium 9.5 (8.4-10.2) mg/dL Total Bilirubin 0.3 (0.0-1.0) mg/dL Direct Bilirubin 0.1 (0.0-0.5) mg/dL AST 30 (5-37) U/L ALT 27 (0-40) U/L Alkaline Phosphatase 73 (39-117) U/L Total Protein 8.4 H (6.5-8.0) g/dL Albumin 4.5 (3.5-5.0) g/dL Urine Opiates Screen Not Detected (Not Detect) Ur Buprenorphine Scrn Not Detected (Not Detect) ng/mL Ur Oxycodone Screen Not Detected (Not Detect) ng/mL Urine Methadone Screen Not Detected (Not Detect) ng/mL Urine Fentanyl Screen Not Detected (Not Detect) Ur Barbiturates Screen Not Detected (Not Detect) Ur Phencyclidine Scrn Not Detected (Not Detect) Ur Amphetamines Screen Not Detected (Not Detect) U Benzodiazepines Scrn Not Detected (Not Detect) Urine Cocaine Screen Not Detected (Not Detect) U Marijuana (THC) Screen Not Detected (Not Detect) Ethyl Alcohol < 10 mg/dL Discharge Plan Discharge Clinical Impression: Anger reaction Patient Disposition: Home, Self-Care Instructions: Anxiety (ED) Additional Instructions: Please follow-up with your primary care physician tomorrow. If you have any worsening or new symptoms, please return to the emergency room or call 911 Prescriptions: No Action carboxymethylcellulose sodium [Refresh Plus] 0.5 % dropperette 1 drp ophthalmic (eye) BID PRN (Reason: dry eye(s)) Qty: 30 0RF Rx Instructions: Preservative-free One Daily Multi-Vit w-Mineral 4.5 mg iron tablet 1 tab PO QAM Qty: 90 0RF aripiprazole [Abilify] 5 mg tablet 5 mg PO DAILY quetiapine [Seroquel] 200 mg tablet 200 mg PO DAILY clonidine HCl 0.2 mg tablet See Rx Instructions PO BEDTIME Rx Instructions: 0.4 mg PO 4 pm; trazodone 50 mg tablet 50 mg PO BEDTIME PRN quetiapine 50 mg tablet 50 mg PO BEDTIME acetaminophen 500 mg capsule 1,000 mg PO TID PRN (Reason: pain) Qty: 30 0RF artifi.tears(hypromellose)(PF) 0.3 % drops 1 drp ophthalmic (eye) TID PRN (Reason: dry eye(s)) Qty: 10 3RF docusate sodium [Colace] 100 mg capsule 100 mg PO DAILY 90 Days Qty: 90 3RF famotidine 20 mg tablet 20 mg PO BID Qty: 180 3RF guaifenesin [Siltussin SA] 100 mg/5 mL liquid 200 mg PO Q4H PRN (Reason: for cough) Qty: 118 11RF Interventions: [place]-Suicide Risk Severity Scale Last Done: 09/19/24 16:39 Print Language: Luxembourgish
[2024-09-19 16:26] VITALS: BP 138/98; BP 141/79; PULSE 70; PULSE 72; RESP 16; TEMP 37; O2SAT 96; O2SAT 98; BMI 25.8
--- NOTE | 2024-09-19 16:40 | PC.NURSE ---
Pt comes to ED BH pod via EMS from a [facility]. Report received that Pt made statements of SI while biting his own hand and wrapping a cord around his neck. Pt reports he was frustrated and upset over something stupid and only made statements d/t to those feelings. He now denies any SI and states he feels better. A&Ox3, VSS, afebrile. No noted markings (redness, wounds, bruising, or swelling) to Pts neck. Pt demonstrates appropriate ROM of neck without pain or limitation. One small superficial circular abrasion noted his R wrist. No active bleeding, no bruising or swelling noted. Pt demonstrates appropriate ROM of R wrist and digits. residential staff member with Pt at this time. Awaiting dispo
[2024-09-19 16:45] LABS: MANUAL DIFF FLAG NO
[2024-09-19 16:46] LABS: Basophils Percent Auto 0.2 % (0-2); Eosinophils Absolute Auto 0.1 X10*3/uL (0.0-0.4); Eosinophils Percent Auto 1.5 % (0-4); Hematocrit 41.5 % (42.0-52.0); Hemoglobin 14.8 g/dl (14.0-18.0); Imm Gran Abs Auto 0.02 X10*3/uL (0.00-0.03); Imm Gran Pct Auto 0.3 % (0.0-0.4); Lymphocytes Absolute Auto 2.3 X10*3/uL (1.2-4.9); Lymphocytes Percent Auto 35.4 % (20-40); Mean Corpuscular HGB Conc 35.7 g/dl (31.0-36.0); Mean Corpuscular Hemoglobin 31.5 pg (27.0-33.0); Mean Corpuscular Volume 88.3 fL (80.0-98.0); Mean Platelet Volume 10.7 fL (9.4-12.4); Monocytes Absolute Auto 0.6 X10*3/uL (0.1-1.2); Monocytes Percent Auto 8.4 % (2-11); Neutrophils Absolute Auto 3.5 x10*3/uL (2.0-8.3); Neutrophils Percent Auto 54.2 % (45-73); Platelet Count 167 X10*3/uL (160-400); Red Cell Distribution Width 12.3 % (11.0-16.0); White Blood Count 6.5 X10*3/uL (4.8-10.8)
[2024-09-19 17:10] LABS: Alanine Aminotransferase 27 U/L (0-40); Albumin Level 4.5 g/dL (3.5-5.0); Alkaline Phosphatase 73 U/L (39-117); Anion Gap 14 (12-20); Aspartate Amino Transferase 30 U/L (5-37); Bilirubin Direct 0.1 mg/dL (0.0-0.5); Bilirubin Total 0.3 mg/dL (0.0-1.0); Blood Urea Nitrogen 15 mg/dL (9-16); Calcium 9.5 mg/dL (8.4-10.2); Carbon Dioxide 25 mmol/L (22-29); Chloride 105 mmol/L (96-108); Estimated Glomerular Filt Rate > 60; Ethanol < 10 mg/dL; Glucose Random 96 mg/dL (60-115); Potassium 3.8 mmol/L (3.3-5.1); Sodium 140 mmol/L (135-145); Total Protein 8.4 g/dL (6.5-8.0)
--- NOTE | 2024-09-19 17:13 | MHC.EDTECH ---
EKG performed at [address] off [address] Barillas. Physical copy of EKG is currently located in patient chart in Pod
[2024-09-19 17:27] LABS: Amphetamine Screen Urine Not Detected (Not Detect); Barbiturates, Urine Not Detected (Not Detect); Benzodiazepines Screen Urine Not Detected (Not Detect); Buprenorphine Scr Not Detected (Not Detect); Cannabinoid Screen Urine Not Detected (Not Detect); Cocaine Screen Urine Not Detected (Not Detect); Fentanyl, urine Not Detected (Not Detect); Methadone Screen, Urine Not Detected (Not Detect); Opiate Screen Urine Not Detected (Not Detect); Oxycodone Screen Urine Not Detected (Not Detect); Phencyclidine Screen Urine Not Detected (Not Detect)
[2024-09-19 18:09] VITALS: BP 141/79; PULSE 72; RESP 16; TEMP 37; O2SAT 96
--- NOTE | 2024-09-19 23:05 | MHC.CARE ---
[facility] follow-up referral was completed and faxed. Sandy at [facility] confirms that the referral was recieved and will be reviewed.
== END 2024-09-19 18:26 | disposition home or self-care (01) ==
LOC: HO.ED 18:08
PROVIDERS: Emergency Provider Emergency Medicine; PCP Internal Medicine
DX: R45.4 Irritability and anger (principal); R45.851 Suicidal ideations; R00.1 Bradycardia, unspecified; I49.8 Other specified cardiac arrhythmias; Z51.81 Encounter for therapeutic drug level monitoring; Z79.899 Other long term (current) drug therapy
CPT/HCPCS: 36415; 80048; 80076; 80307; 85025; 93005; 99284; 99285; S9485

== ENCOUNTER → 2024-09-19 16:54 | Outpatient (BNV) | payer MEDICARE, MEDICAID, SELFPAY | PROVIDERS: Emergency Provider Emergency Medicine; PCP Internal Medicine; Visit Provider Internal Medicine | DX: R00.1 Bradycardia, unspecified (principal) | CPT/HCPCS: 93010 ==

== ENCOUNTER 2024-09-24 15:27 | Outpatient (AMB) | payer MEDICARE, MEDICAID, SELFPAY ==
--- OUTSIDE RECORDS SUMMARY | 2024-09-24 15:30 | XMS_ITS | Clinical Summary ---
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 Name Role Phone Unavailable Primary Care Provider Unavailabl e Social History Tobacco Use Types Packs/Day Years Used Date Smoking Tobacco: Never Assessed Sex and Gender Information Value Date Recorded Sex Assigned at Not on file Gender Identity Not on file Sexual Orientation Not on file Plan of Treatment Upcoming Encounters Date Type Department Care Team ([facility] Contact Info) Description 10/15/2024 9:45 AM EST Office Visit Orthopedic Surgery [facility] [address] [phone] Jewel Medellin DPM [address] [id number] Health Maintenance Due Date Last Done Comments DTaP,Tdap,and Td Vaccines (1 - Tdap) 2001 Hepatitis B Vaccines (1 of 3 - 19+ 3-dose series) 2001 COVID-19 Vaccine (2023-2 5 season) 2024 Influenza Vaccine (#1) 2024 Cholesterol Screening (Lipid Panel) 07/05/2024 Depression Screening 07/05/2024 HIV Screening 07/05/2024 Hepatitis C Screening 07/05/2024 Medicare Annual Wellness Visit 07/05/2024 Social Influencers of Health Screening 07/05/2024 HIB Vaccines Aged Out No longer eligi ble based on patient's age to complete this topic HPV Vaccines Aged Out No longer eligi ble based on patient's age to complete this topic Hepatitis A Vaccines Aged Out No long er eligible based on patient's age to complete this topic IPV Vaccines Aged Out No longer eligi ble based on patient's age to complete this topic MMR Vaccines Aged Out No longer eligi ble based on patient's age to complete this topic Meningococcal ACWY Vaccine Aged Out N o longer eligible based on patient's age to complete this topic Pneumococcal Vaccine: Pediat rics (0 to 5 Years) and At-Risk Patients (6 to 64 Years) Aged Out No longer eligible b ased on patient's age to complete this topic RSV Immunization Patients Un rashaad 20 months Aged Out No longer eligible b ased on patient's age to complete this topic Varicella Vaccines Aged Out No longer eligible based on patient's age to complete this topic
--- NOTE | 2024-09-24 15:32 | A.OFFPC_ITS ---
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: Present Accompanied by: Staff Allergies No Known Allergies Allergy (Verified 09/24/24 16:10) Medication List - Last Reconciled 09/24/24 by Dede Pandey PA-C acetaminophen 1,000 mg (2 x 500 mg) PO TID PRN aripiprazole (Abilify) 5 mg PO DAILY artifi.tears(hypromellose)(PF) 0.3% 1 drp ophthalmic (eye) TID PRN bacitracin zinc 1 appl topical BID carboxymethylcellulose sodium 0.5% (Refresh Plus) 1 drp ophthalmic (eye) BID PRN clonidine HCl 0.4 mg PO 4 pm; docusate sodium (Colace) 100 mg PO DAILY 90 days famotidine 20 mg PO BID guaifenesin (Siltussin SA) 200 mg (10 mL) PO Q4H PRN loperamide (Imodium A-D) 2 mg PO Q6H PRN [id number]-cqw-dyhhyyy sulfate 4.5 mg iron (One Daily Multivitamins with Minerals) 1 tab PO QAM quetiapine (Seroquel) 200 mg PO DAILY quetiapine 50 mg PO BEDTIME trazodone 50 mg PO BEDTIME PRN Tobacco use date assessed: 09/24/24 Dental Screening Dental Screen Date: 09/24/24 Did you have a dental visit in the last 12 months?: Yes Did you have a dental problem in the last 6 months where you did not have access to dental care?: No Was dental information given to patient?: Patient has dentist HPI [facility] 09/19 HPI Details 44-year-old male with past medical histo ry of Tourette syndrome, hypercholesterolemia, hepatic steatosis, gallbladder polyp coming in for follow up. In review of the notes, patient was seen in [facility] ED 09/19/2024 for and anger reaction he wrapped in the electrical cord around his neck when he was angry. Patient was stable when he was in the ED and discharged home. Patient tells us today he denies any thoughts of self-harm or harm of others. When he gets angry he had finds it hard to manage his emotions. He was previously working on this with his therapist but no longer has a therapist and is working on establishing with a new 1. He follows with Dr. Navarro for Psychiatry and we will have appointment coming up. [facility] Medical History GERD (gastroesophageal reflux disease) Pervasive developmental disorder Tourettes syndrome Mental and behavioral problem Surgical History No pertinent past surgical history Family History Father Medical history unknown Mother No problems noted. Social History Housing: Other Alcohol intake: never Patient Tobacco Use Status: Never used Tobacco e-Cigarette/Vaping Use: Never Used Second Hand Smoke Exposure: No service: No Current occupational status: disabled Cognitive needs: No Hearing needs: No Vision needs: No Questionnaire PHQ-9 Over the last 2 weeks, how often have you been bothered by any of the following problems? 1. Little interest or pleasure in doing things: not at all 2. Feeling down, depressed, or hopeless: not at all 3. Trouble falling or staying asleep, or sleeping too much: not at all 4. Feeling tired or having little energy: not at all 5. Poor appetite or overeating: not at all 6. Feeling bad about yourself - or that you are a failure or have let yourself or your family down: not at all 7. Trouble concentrating on things, such as reading the newspaper or watching television: not at all 8. Moving or speaking so slowly that other people could have noticed. Or the opposite - being so fidgety or restless that you have been moving around a lot more than usual: not at all 9. Thoughts that you would be better off or of hurting yourself in some way: not at all Total score: 0 Depression Screening Interpretation: Negative Depression Screening Done: Yes Source: Developed by Drs. Ruben Choe, Sherri Andrade, Marty Dunaway and colleagues, with an educational leilani from [employer]. Thrive Questionnaire Date Thrive assessed: 09/24/24 I am a: Patient What is your living situation today?: I have a steady place to live Within the past 12 months, did the food you bought not last and you didn't have the money to get more?: Never true Within the past 12 months, did you worry whether your food would run out before you got money to buy more?: Never true Do you have trouble paying for medicines?: No Do you have trouble getting transportation to medical appointments?: No Do you have trouble paying your heating and electricity bill?: No Do you have trouble taking care of your child, family member or friend?: No Do you have trouble with day-to-day activities such as bathing, preparing meals, shopping, managing finances, etc.?: No Are you currently unemployed and looking for a job?: No Are you interested in more education?: No Please select the resources that you would like help with: None Currently or been in a relationship where the following occur: No concerns reported THRIVE Score: 0 AUDIT C Alcohol Use Questionnaire (AUDIT-C) 1. How often do you have a drink containing alcohol?: Never Total Score: 0 MARIELOS-7 AMB Questionnaire MARIELOS-7 Date MARIELOS - 7 assessed: 09/24/24 Feeling nervous, anxious, or on edge: 0 = Not at all Not being able to stop or control worryin = Not at all Worrying too much about different things: 0 = Not at all Trouble relaxin = Not at all Being so restless that it is hard to sit still: 0 = Not at all Becoming easily annoyed or irritable: 0 = Not at all Feeling afraid as if something awful might happen: 0 = Not at all Total MARIELOS-7 score (0-4 normal; 5-9 mild; 10-14 moderate; 15-21 severe): 0 Source: Developed by Drs. Ruben Choe, Marty Sanchez and colleagues, with an educational leilani from [employer]. Review of Systems Const Denies body aches, Denies chills, Denies fever(s), Denies headache(s) and Denies poor appetite Eyes Reports no additional complaints ENT Denies dizziness and Denies headache(s) Card Denies chest pain, Denies lightheadedness and Denies dyspnea Resp Denies cough and Denies dyspnea GI Denies abdominal pain, Denies constipation, Denies diarrhea, Denies nausea and Denies vomiting Reports no additional complaints Musc Reports no additional complaints and Denies abnormal gait Skin/Breast Reports system reviewed and no additional complaints, except as documented Neuro Denies abnormal gait, Denies dizziness and Denies headache(s) Psych Reports no additional complaints Physical exam (Primary Care) Vital Signs: Last Vital Signs Temp 97.7 F 09/24/24 15:34 Pulse 71 09/24/24 15:34 BP 110/70 09/24/24 15:34 Pulse Ox 97 09/24/24 15:34 Oxygen Delivery Method Room Air 09/24/24 15:34 BMI result Body Mass Index 26.9 Tobacco/Smoking Status: Tobacco use Status Tobacco use date assessed 09/24/24 09/24/24 15:36 Patient Tobacco Use Status Never used Tobacco 09/24/24 15:36 e-Cigarette/Vaping Use Never Used 09/24/24 15:36 PHQ-9: PHQ-9 Score PHQ-9: Total score 0 09/24/24 15:36 Depression Screening Interpretation: Negative Thrive Assessment: Date of Thrive Assessment Date Thrive assessed 09/24/24 09/24/24 15:36 Currently or been in a relationship where the following occur: No concerns reported Const General: cooperative, healthy appearing, comfortable and no acute distress Orientation/consciousness: patient oriented x3 [facility] Head: Yes normocephalic Ears: hearing grossly normal bilaterally General nose exam: Normal external nose present Eyes General: appearance normal, both eyes and all related structures Conjunctivae: conjunctivae normal Neck Neck: Yes full ROM and Yes no lymphadenopathy Resp Effort & Inspection: normal respiratory effort Auscultation: clear to auscultation bilaterally, no crackles, no rales, no rhonchi and no wheezes Cardio Rate: regular rate Rhythm: regular rhythm Skin General skin exam: no rashes or lesions noted Neuro General: patient oriented x3 Gait exam (Neuro): Normal gait present Extrem General: Yes normal to inspection, Yes full ROM and No edema Psych Affect: normal affect Attitude: cooperative Insight: Good insight present (Psych) Judgement: Good judgement present (Psych) Coding Level of Care Code Est Pt Level 3 (11587) Diagnoses GERD (gastroesophageal reflux disease) K21.9 Mental and behavioral problem F48.9; F69 Hypercholesterolemia E78.00 Assessment & Plan Assessment & Plan (1) GERD (gastroesophageal reflux disease): Code(s): K21.9 - Gastro-esophageal reflux disease without esophagitis Category: Medical Plan: Avoid trigger foods such as citrus, tomato products, soda, caffeine, spicy foods and other foods that may be irritating to your stomach. Avoid laying flat 3-4 hours after eating and elevate the head of the bed 30 degrees to prevent acid from moving into the esophagus. (2) Mental and behavioral problem: Code(s): F48.9 - Nonpsychotic mental disorder, unspecified; F69 - Unspecified disorder of adult personality and behavior Category: Medical Plan: Patient currently working with Dr. Navarro for psychiatry management as medications . He is working on establishing with a new therapist for management of his anger and other mood disorder. At this time patient is stable and denies any thoughts of self-harm and agrees to reach out to staff or our office if this changes. (3) Hypercholesterolemia: Code(s): E78.00 - Pure hypercholesterolemia, unspecified Category: Medical Plan: Avoid foods that are high in cholesterol such as red meat, fried foods, eggs and baked goods. Triglyceride goal of less than 150 and LDL goal of less than 130. Plan This note was constructed using voice recognition software. While every effort has been made to ensure accuracy and field operations supervisor, still areas may have been included sometimes these areas may affect the content or meeting of the given symptoms. Total time spent caring for the patient today was 20 minutes. This includes time spent before the visit reviewing the chart, time spent during the visit, and time spent after the visit and documentation. Medications: New loperamide (Imodium A-D) 2 mg PO Q6H PRN 30 tabs 2RF loose stool bacitracin zinc 1 appl topical BID 14.2 grams 0RF Refilled acetaminophen 1,000 mg (2 x 500 mg) PO TID PRN 30 caps 2RF pain
[2024-09-24 15:34] VITALS: BP 110/70; PULSE 71; TEMP 36.5; O2SAT 97; BMI 26.9
== END 2024-09-24 16:00 | disposition home or self-care (01) ==
PROVIDERS: PCP Internal Medicine
DX: K21.9 Gastro-esophageal reflux disease without esophagitis (principal); F48.9 Nonpsychotic mental disorder, unspecified; F69 Unspecified disorder of adult personality and behavior; E78.00 Pure hypercholesterolemia, unspecified

== ENCOUNTER → 2024-09-24 15:27 | Outpatient (BNVA) | payer MEDICARE, MEDICAID, SELFPAY | PROVIDERS: PCP Internal Medicine | DX: K21.9 Gastro-esophageal reflux disease without esophagitis (principal); F48.9 Nonpsychotic mental disorder, unspecified; F69 Unspecified disorder of adult personality and behavior; E78.00 Pure hypercholesterolemia, unspecified | CPT/HCPCS: 99212 ==

== ENCOUNTER 2024-10-11 12:31 | Outpatient (AMB) | payer MEDICARE, MEDICAID, SELFPAY ==
[2024-10-11 12:48] VITALS: BP 128/72; PULSE 80; O2SAT 98; BMI 26.9
--- NOTE | 2024-10-11 12:48 | A.OFFPC_ITS ---
Vital Signs 10/11/24 12:48 Height 5 ft 8 in Weight 177 lb BMI 26.9 BP 128/72 Blood Pressure Location Lt brachial Position Sitting Pulse 80 Pulse Source Pulse Oximeter Pulse Oximetry (%) 98 Oxygen Delivery Method Room Air Intake Visit Reasons: ANNUAL Allergies No Known Allergies Allergy (Verified 10/11/24 12:51) Medication List - Last Reconciled 10/11/24 by Chelsey Park MD acetaminophen 1,000 mg (2 x 500 mg) PO TID PRN aripiprazole (Abilify) 5 mg PO DAILY artifi.tears(hypromellose)(PF) 0.3% 1 drp ophthalmic (eye) TID PRN bacitracin zinc 1 appl topical BID carbamide peroxide 6.5% (Debrox) 5 drps otic (ears) DAILY 4 days carboxymethylcellulose sodium 0.5% (Refresh Plus) 1 drp ophthalmic (eye) BID PRN clonidine HCl 0.4 mg PO 4 pm; docusate sodium (Colace) 100 mg PO DAILY 90 days famotidine 20 mg PO BID guaifenesin (Siltussin SA) 200 mg (10 mL) PO Q4H PRN loperamide (Imodium A-D) 2 mg PO Q6H PRN [id number]-[id number] sulfate 4.5 mg iron (One Daily Multivitamins with Minerals) 1 tab PO QAM quetiapine (Seroquel) 200 mg PO DAILY quetiapine 50 mg PO BEDTIME trazodone 50 mg PO BEDTIME PRN Tobacco use date assessed: 09/24/24 Dental Screening Dental Screen Date: 09/24/24 Did you have a dental visit in the last 12 months?: Yes Did you have a dental problem in the last 6 months where you did not have access to dental care?: No Was dental information given to patient?: Patient has dentist [facility] Medical History (Updated 10/11/24 @ 12:56 by Chelsey Park MD) LFT elevation GERD (gastroesophageal reflux disease) Pervasive developmental disorder Tourettes syndrome Mental and behavioral problem Surgical History No pertinent past surgical history Family History Father Medical history unknown Mother No problems noted. Social History Housing: Other Alcohol intake: never Patient Tobacco Use Status: Never used Tobacco Tobacco use type: Cigarette e-Cigarette/Vaping Use: Never Used Second Hand Smoke Exposure: No service: No Current occupational status: disabled Cognitive needs: No Hearing needs: No Vision needs: No Questionnaire PHQ-9 Over the last 2 weeks, how often have you been bothered by any of the following problems? 1. Little interest or pleasure in doing things: not at all 2. Feeling down, depressed, or hopeless: not at all 3. Trouble falling or staying asleep, or sleeping too much: not at all 4. Feeling tired or having little energy: not at all 5. Poor appetite or overeating: not at all 6. Feeling bad about yourself - or that you are a failure or have let yourself or your family down: not at all 7. Trouble concentrating on things, such as reading the newspaper or watching television: not at all 8. Moving or speaking so slowly that other people could have noticed. Or the opposite - being so fidgety or restless that you have been moving around a lot more than usual: not at all 9. Thoughts that you would be better off or of hurting yourself in some way: not at all Total score: 0 Depression Screening Interpretation: Negative Depression Screening Done: Yes 73879 - PHQ-9 Billing: Yes Source: Developed by Drs. Ruben Choe, Sherri Andrade, Marty Dunaway and colleagues, with an educational leilani from [employer]. Thrive Questionnaire Date Thrive assessed: 09/24/24 I am a: Patient What is your living situation today?: I have a steady place to live Within the past 12 months, did the food you bought not last and you didn't have the money to get more?: Never true Within the past 12 months, did you worry whether your food would run out before you got money to buy more?: Never true Do you have trouble paying for medicines?: No Do you have trouble getting transportation to medical appointments?: No Do you have trouble paying your heating and electricity bill?: No Do you have trouble taking care of your child, family member or friend?: I choose not to answer this question Do you have trouble with day-to-day activities such as bathing, preparing meals, shopping, managing finances, etc.?: No Are you currently unemployed and looking for a job?: No Are you interested in more education?: I choose not to answer this question Please select the resources that you would like help with: None Currently or been in a relationship where the following occur: I choose not to answer THRIVE Score: 0 AUDIT C Alcohol Use Questionnaire (AUDIT-C) 1. How often do you have a drink containing alcohol?: Never Total Score: 0 MARIELOS-7 AMB Questionnaire MARIELOS-7 Date MARIELOS - 7 assessed: 09/24/24 Feeling nervous, anxious, or on edge: 0 = Not at all Not being able to stop or control worryin = Not at all Worrying too much about different things: 0 = Not at all Trouble relaxin = Not at all Being so restless that it is hard to sit still: 0 = Not at all Becoming easily annoyed or irritable: 0 = Not at all Feeling afraid as if something awful might happen: 0 = Not at all Total MARIELOS-7 score (0-4 normal; 5-9 mild; 10-14 moderate; 15-21 severe): 0 Source: Developed by Drs. Ruben Choe, Sherri Andrade, Marty Dunaway and colleagues, with an educational leilani from [employer]. Review of Systems Const Denies poor appetite and Denies weakness Eyes Denies no additional complaints ENT Reports Normal hearing present, Denies dizziness, Denies nasal congestion, Denies tinnitus and Denies sore throat Card Denies chest pain, Denies syncope, Denies rapid heart rate and Denies dyspnea Resp Denies cough and Denies dyspnea GI Denies change in stool character, Reports constipation, Denies diarrhea, Denies nausea and Denies vomiting Denies dysuria and Denies urinary frequency Neuro Reports Normal hearing present, Denies confusion, Denies dizziness, Denies syncope and Denies weakness Psych Denies confusion Physical exam (Primary Care) Vital Signs: Last Vital Signs Pulse 80 10/11/24 12:48 BP 128/72 10/11/24 12:48 Pulse Ox 98 10/11/24 12:48 Oxygen Delivery Method Room Air 02/21/25 12:48 BMI result Body Mass Index 26.9 Tobacco/Smoking Status: Tobacco use Status Tobacco use date assessed 09/24/24 10/11/24 12:56 Patient Tobacco Use Status Never used Tobacco 10/11/24 12:56 Tobacco use type Cigarette 10/11/24 12:56 e-Cigarette/Vaping Use Never Used 10/11/24 12:56 PHQ-9: PHQ-9 Score PHQ-9: Total score 0 10/11/24 12:56 Depression Screening Interpretation: Negative Thrive Assessment: Date of Thrive Assessment Date Thrive assessed 09/24/24 10/11/24 12:56 Currently or been in a relationship where the following occur: I choose not to answer Const General: No confusion Orientation/consciousness: No confusion HENMT Head: Yes normocephalic Ears: external ears normal and TM's normal bilaterally Face and sinus: Yes normal facial exam Mouth: moist mucous membranes Throat: Yes tonsils normal Eyes Conjunctivae: conjunctivae normal Pupils: Equal, round and reactive pupils present and Pupil accommodation reflex normal Direct Ophthalmoscopy: normal light reflex Neck Neck: No lymphadenopathy Thyroid: Thyroid normal Chest Chest palpation & inspection: normal inspection of the chest Resp Effort & Inspection: normal respiratory effort and no audible wheezes Auscultation: clear to auscultation bilaterally, no crackles, no wheezes and lung sounds not diminished Cardio Rate: regular rate Rhythm: regular rhythm Peripheral pulses: radial pulses present and dorsalis pedis present GI Palpation (GI): no masses Auscultation: normal bowel sounds and normoactive bowel sounds Rectal Exam - Male: Yes deferred Skin General skin exam: no rashes or lesions noted Rashes: no rashes Neuro General: No confusion Cranial nerves: Yes Equal, round and reactive pupils present and Yes Normal hearing present Cognition (Neuro): normal cognition Gait exam (Neuro): Normal gait present Motor exam (neuro): 5/5 motor strength present throughout Deep tendon reflexes (DTR's): Right brachioradialis reflex intensity grade: 2+, Left brachioradialis reflex intensity grade: 2+, Right patellar reflex intensity grade: 2+ and Left patellar reflex intensity grade: 2+ Extrem General: No edema Coding Level of Care Code Est Pt Prev Care 40-64y(90157) Diagnoses Annual physical exam Z00.00 Tourettes syndrome F95.2 GERD (gastroesophageal reflux disease) K21.9 Hypercholesterolemia E78.00 Hepatic steatosis K76.0 Gallbladder polyp K82.4 Additional Codes PHQ-9 - 72380 - PHQ-9 Billing: Yes ([id number]) Assessment & Plan Assessment & Plan (1) Annual physical exam: Code(s): Z00.00 - Encounter for general adult medical examination without abnormal findings Category: Medical Plan: Patient is advised to eat healthy, keep well hydrated, keep active and have adequate sleep. (2) Tourettes syndrome: Code(s): F95.2 - Tourette's disorder Category: Medical Plan: Continue to follow-up with psychiatry and counseling (3) GERD (gastroesophageal reflux disease): Code(s): K21.9 - Gastro-esophageal reflux disease without esophagitis Category: Medical Plan: Avoid the foods that causes that usually spicy foods, tomato products, juices, coffee, soda and foods that your sensitive to. After eating do not lie down, allow 3-4 hours before in lie down. And keep the head of bed above 30 degrees to avoid the acid from going up. On famotidine (4) Hypercholesterolemia: Code(s): E78.00 - Pure hypercholesterolemia, unspecified Category: Medical Plan: Avoid fried foods, chicken skin, eggs, butter margarine, pastries and meat. Be it pork or beef they have a lot of cholesterol LDL goal of less than 130 and triglyceride of less than 150 (5) Hepatic steatosis: Comment: October 2023 Code(s): K76.0 - Fatty (change of) liver, not elsewhere classified Category: Medical Plan: Low-fat diet and exercise (6) Gallbladder polyp: Comment: October 2023 year 1 yearly Code(s): K82.4 - Cholesterolosis of gallbladder Category: Medical Plan History of Present Illness The patient is a 44-year-old male presenting for a physical exam and management of ongoing health conditions. He has a history of Tourette syndrome with mental and behavioral problems, leading to a recent emergency room visit due to an anger-related incident. The patient also has a history of anemia, which was considered stable with the last blood work done on September 19, showing normal blood count. Past medical history includes diagnosed hypercholesterolemia with the last LDL level recorded at 145 on September, targeted to be less than 130, and hepatic steatosis. He was found to have a gallbladder polyp, noted in October 2023. He has been experiencing GERD and is managing this condition with chapito curiel. His cholesterol is managed through lifestyle modifications and exercise, with emphasis on a no-fat diet. There were no signs of underlying liver dysfunction in the recent examinations. Health Maintenance - Continued monitoring of cholesterol levels to maintain an LDL goal of less than 130 mg/dL and triglycerides below 150 mg/dL through a low-fat diet and regular exercise. - Maintain regular follow-ups with psychiatry and counseling for Tourette syndrome and associated behavioral concerns. - Ultrasound planned for gallbladder polyp assessment. 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 - Missed a social event due to the appointment but plans to indulge in a specific diet (e.g., [place] food occasionally). - Describes himself as careful about possible flu, COVID-19, and RSV exposure, with adjustments in public behavior to minimize risk. Review of Systems - ENT: Reports echoey feeling in ears, with the condition improving after ear drops. - Respiratory: Denies congestion or sneezing except when exposed to the sun glare. - Musculoskeletal: Denies pain during the physical examination maneuvers. - General: Denies any difficulty with urination or bowel movements. Physical Exam General: Cooperative, healthy appearing, comfortable, no acute distress and well developed Orientation: Patient oriented x3 Limitations: No limitations Head: Normal to inspection Ears: Hearing grossly normal bilaterally, but patient reports echoing sensation; no congestion or pain noted Nose: Normal external nose present Face and sinus: Normal facial exam Eyes: Appearance normal, both eyes and all related structures; patient uses prescription glasses Neck: Normal visual inspection and Yes full ROM Respiratory: Normal respiratory effort and able to speak in complete sentences. Clear to auscultation bilaterally Cardiovascular: Regular rate and rhythm. Normal S1 and S2 GI: Normal to inspection. Soft to palpation and nontender Skin: No rashes or lesions noted Neuro: Patient oriented x3 Extremities: Normal to inspection Results - Labs: Normal blood count, electrolytes, renal and liver function as of September 19. - Imaging: Recommendation for gallbladder ultrasound to monitor previously identified polyp. Plan Patient was informed and verbally consented to the use of an ambient scribe for clinic note documentation during this visit. 1. Tourette Syndrome With Mental And Behavioral Problems Continue management with follow-up through psychiatry and counseling. Monitor behavioral incidents closely and adjust therapeutic interventions as necessary. 2. Gallbladder Polyp Schedule and conduct an ultrasound to reassess polyp status, considering any necessary follow-up based on results. 3. Gastroesophageal Reflux Disease Gerd Continue treatment with famotidine as it appears effectively managing symptoms. Monitor for any progression or symptom changes. 4. Hypercholesterolemia Achieve LDL target of less than 130 mg/dL through lifestyle modifications including diet and exercise. Monitor lipid levels periodically. No current statin therapy discussed. Discussion Notes During the consultation, I discussed with the patient the importance of ongoing management of his medical conditions, particularly hypercholesterolemia, and the role of lifestyle interventions. I explained the necessity of achieving an LDL goal of less than 130 mg/dL and encouraged adherence to a no-fat diet and regular exercise. We reviewed the recent blood work, confirming normal renal and liver function, and I provided guidance on the next steps in monitoring the gallbladder polyp. A future ultrasound was agreed upon for continued assessment. Proper follow-up care with psychiatric services for Tourette syndrome was encouraged considering his recent behavioral episode. We spoke about the significance of preventive health, including avoiding exposure to infectious agents during the flu season. The patient was reminded to seek further care if symptoms worsen. Patient Instructions - Continue practicing the no-fat diet and engage in regular exercise to assist with cholesterol management. - Take famotidine for GERD as prescribed. - Schedule and complete the abdominal ultrasound for further assessment of the gallbladder polyp. - Follow up with your psychiatrist and counselor regularly. - Be cautious during flu season about exposure; practice appropriate preventative measures like avoiding close contact with people who are sick. - Return to care if experiencing new or worsening symptoms, such as severe abdominal pain, new ear symptoms, or behavioral changes. Orders: Orders US abdomen complete Today K82.4 - Cholesterolosis of gallbladder, R79.89 - Other specified abnormal findings of blood chemistry
== END 2024-10-11 13:14 | disposition home or self-care (01) ==
PROVIDERS: PCP Internal Medicine; Visit Provider Internal Medicine
DX: Z00.00 Encounter for general adult medical examination without abnormal findings (principal); F95.2 Tourette's disorder; K21.9 Gastro-esophageal reflux disease without esophagitis; E78.00 Pure hypercholesterolemia, unspecified; K76.0 Fatty (change of) liver, not elsewhere classified; K82.4 Cholesterolosis of gallbladder

== ENCOUNTER → 2024-10-11 12:31 | Outpatient (BNVA) | payer MEDICARE, MEDICAID, SELFPAY | PROVIDERS: PCP Internal Medicine; Visit Provider Internal Medicine | DX: Z00.00 Encounter for general adult medical examination without abnormal findings (principal); F95.2 Tourette's disorder; K21.9 Gastro-esophageal reflux disease without esophagitis; K76.0 Fatty (change of) liver, not elsewhere classified; K82.4 Cholesterolosis of gallbladder | CPT/HCPCS: 96127; 99396 ==

== ENCOUNTER 2024-11-29 10:23 | Outpatient (REF) | payer MEDICARE, MEDICAID, SELFPAY ==
--- NOTE | ~2024-11-29 | US_ITS ---
CLINICAL HISTORY: R79.89 - ELEVATED LIVER FUNCTION TESTS; POLYP OF GALLBLADDER US abdomen complete with duplex and color Doppler Comparison: US/SR - US ABDOMEN LIMITED - 11/01/23 08:23 EDT Findings: The visualized pancreas, aorta, and inferior vena cava are unremarkable. Liver normal size and echotexture. Right lobe 16.0 cm length. No focal hepatic masses. Common duct 3.0 mm diameter. Physiologic distention of the gallbladder. No gallstones or sludge. 2 mm gallbladder polyp in the neck and fundus of the gallbladder No pericholecystic fluid. No sonographic Diez sign. Main portal vein antegrade. Right kidney normal size, 10.6 cm in length. Normal cortical width and echotexture. No solid or cystic renal masses. No nephrolithiasis or hydronephrosis. Left kidney normal, 10.5 cm in length. Normal cortical width and echotexture. No solid or cystic renal masses. Likely benign renal cortical cyst midpole measuring 8 x 7 x 6 mm. Spleen measures 11.6 cm. No splenic masses. No ascites. No lymphadenopathy. Impression: 1. A total of two 2 mm gallbladder polyps present. 2. Liver is normal in size and echotexture. No focal hepatic lesions. 3. Probable renal cortical cyst left kidney six-month follow-up would suffice. This document has been electronically signed by: Collin Salter MD on 11/29/2024 12:46:23
--- OUTSIDE RECORDS SUMMARY | 2024-11-29 11:12 | XMS_ITS | Clinical Summary ---
Author Organization [address] [facility] [place] Address [address] [place] [address] Phone Care Team Providers Care Software Test Specialist Name Role Phone Physician, Pcp Unknown Primary Care Provider Hazel vailable Allergies No known active allergies Encounters Date Type Department Care Team Description 10/15/2024 9:45 AM EST Office Visit [facility] [address] [id number] Jewel Medellin DPM Hammer toe of left foot (Primary Dx); Acquired hammer toe of right foot; Dermatophytosis of nail; Pain in toe of right foot; Pain in toe of left foot; Difficulty walking; Corns and callosities from Last 3 Months Social History Tobacco Use Types Packs/Day Years Used Date Smoking Tobacco: Never Assessed Sex and Gender Information Value Date Recorded Sex Assigned at Not on file Legal Sex Male 7:14 AM EST Gender Identity Not on file Sexual Orientation Not on file Last Filed Vital Signs Vital Sign Reading Time Taken Comments Blood Pressure - - Pulse - - Temperature - - Respiratory Rate - - Oxygen Saturation - - Inhaled Oxygen Concentration - - Weight 75.8 kg (167 lb) 10/15/2024 10:27 AM EST Height 175.3 cm (5' 9 ) 10/15/2024 10:27 AM EST Body Mass Index 24.66 10/15/2024 10:27 AM EST Plan of Treatment Upcoming Encounters Date Type Department Care Team (Late st Contact Info) Description 01/14/2025 9:45 AM EDT Office Visit [facility] [address] [phone] Jewel Medellin DPM [address] [id number] Health Maintenance Due Date Last Done Comments Hepatitis B Vaccines (1 of 3 - 19+ 3-dose series) 2001 COVID-19 Vaccine ( season) 2024 08/09/2023, 08/16/2021, 10/05/2020, Additional history exists Cholesterol Screening (Lipid Panel) 07/05/2024 Depression Screening 07/05/2024 HIV Screening 07/05/2024 Hepatitis C Screening 07/05/2024 Medicare Annual Wellness Visit 07/05/2024 Social Influencers of Health Screening 07/05/2024 DTaP,Tdap,and Td Vaccines (2 - Td or Tdap) 09/30/2032 09/30/2022 Influenza Vaccine Completed 05/31/2024, , 09/27/2021, Additional history exists HIB Vaccines Aged Out No longer eligi [...] patient's age to complete this topic Meningococcal B Vaccine Aged Out No l onger eligible based on patient's age to complete this topic Pneumococcal Vaccine: Pediatrics (0 to 5 Years) and At-Risk Patients (6 to 64 Years) Aged Out No longer eligible based on patient's age to complete this topic RSV Immunization Patients Under 20 months Aged Out No longer eligible based on patient's age to complete this topic Varicella Vaccines Aged Out No longer eligible based on patient's age to complete this topic Insurance MEDICARE MEDICAID - [place] Care Teams Software Test Specialist Relationship Specialty Start Date End Date Physician, Pcp Unknown PCP - General 09/30/24
== END 2024-11-29 10:24 | disposition home or self-care (01) ==
LOC: HO.US 10:23
PROVIDERS: PCP Internal Medicine; Visit Provider Internal Medicine
DX: R79.89 Other specified abnormal findings of blood chemistry (principal); K82.4 Cholesterolosis of gallbladder
CPT/HCPCS: 76700

== ENCOUNTER → 2024-11-29 10:25 | Outpatient (BNV) | payer MEDICARE, MEDICAID, SELFPAY | PROVIDERS: PCP Internal Medicine; Visit Provider Radiology Diagnostic Radiology | DX: K82.4 Cholesterolosis of gallbladder (principal) | CPT/HCPCS: 76700 ==

== ENCOUNTER 2025-05-06 18:59 | Emergency (ER) | payer OTHER, SELFPAY ==
[2025-05-06 19:41] VITALS: BP 130/87; PULSE 65; RESP 16; TEMP 36.4; O2SAT 98; BMI 24.6
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
[2025-05-06 20:01] VITALS: BP 130/87; PULSE 65; RESP 16; TEMP 36.4; O2SAT 98
--- OUTSIDE RECORDS SUMMARY | 2025-05-06 20:02 | XMS_ITS | Clinical Summary ---
Author Organization [address] [facility] Address [address] [place] [address] Phone Care Team Providers Care Media Associate Name Role Phone Physician, Pcp Unknown Primary Care Provider Hazel vailable Allergies No known active allergies Medications ARIPiprazole (ABILIFY) 5 mg tablet Take 1 tablet (5 mg total) by mouth 1 (one) time each day. Active cloNIDine (CATAPRES) 0.2 mg tablet Take 1 tablet (0.2 mg total) by mouth 2 (two) times a day. Active QUEtiapine (SEROquel) 50 mg tablet Take 1 tablet (50 mg total) by mouth. Active QUEtiapine (SEROquel) 200 mg tablet Take 1 tablet (200 mg total) by mouth 1 (one) time each day in the morning. Active traZODone (DESYREL) 50 mg tablet Take 1 tablet (50 mg total) by mouth at bedtime. Active guaiFENesin (ROBITUSSIN) 100 mg/5 mL liquid Take 10 mL (200 mg total) by mouth 3 (three) times a day if needed for cough. Active acetaminophen (TYLENOL) 500 mg tablet Take by mouth every 6 (six) hours if needed for mild pain. Active sodium fluoride (Act Bubble Gum) 0.05 % liquid mouthwash Use in the mouth or throat. Active fluoride, sodium, (Denta 5000 Plus) 1.1 % cream Apply to teeth. Active docusate sodium (COLACE) 100 mg capsule Take 1 capsule (100 mg total) by mouth 2 (two) times a day. Active famotidine (PEPCID) 20 mg tablet Take by mouth. Active multivitamin with minerals tablet Take 1 tablet by mouth 1 (one) time each day. Active Encounters Date Type Department Care Team Description 04/16/2025 9:45 AM EDT Office Visit Orthopedic Surgery [facility] [address] [phone] Jewel Medellin DPM Hammer toe of left foot (Primary Dx); Acquired hammer toe of right foot; Dermatophytosis of nail; Pain in toe of left foot; Difficulty walking; Pain in toe of right foot; Corns and callosities from Last 3 Months [...] - - Weight 75.8 kg (167 lb) 01/14/2025 9:51 AM EDT Height 175.3 cm (5' 9.02 ) 01/14/2025 9:51 AM ED T Body Mass Index 24.65 01/14/2025 9:51 AM EDT Plan of Treatment Upcoming Encounters Date Type Department Care Team (Late st Contact Info) Description 08/07/2025 8:45 AM EST Office Visit Orthopedic Surgery - [place] [address] [phone] Jewel Medellin DPM [address] [phone] Health Maintenance Due Date Last Done Comments Hepatitis B Vaccines (1 of 3 - 19+ 3-dose series) 2001 Cholesterol Screening (Lipid Panel) 07/05/2024 HIV Screening 07/05/2024 Hepatitis C Screening 07/05/2024 Medicare Annual Wellness Visit 07/05/2024 Social Influencers of Health Screening 07/05/2024 Depression Screening 08/21/2024 COVID-19 Vaccine ( season) 2025 08/09/2023, 08/16/2021, 10/05/2020, Additional history exists Influenza Vaccine (#1) 2025 , 04/01/2023, 09/27/2021, Additional history exists DTaP,Tdap,and Td Vaccines (2 - Td or Tdap) 09/30/2032 09/30/2022 HIB Vaccines Aged Out No longer eligi [...] 5 Years) and At-Risk Patients (6 to 49 Years) Aged Out No longer eligible based on patient's age to complete this topic RSV Immunization Patients Under 20 months Aged Out No longer eligible based on patient's age to complete this topic Varicella Vaccines Aged Out No longer eligible based on patient's age to complete this topic Insurance MEDICARE MEDICAID - [place] Care Teams Media Associate Relationship Specialty Start Date End Date Physician, Pcp Unknown PCP - General 09/30/24
== END 2025-05-06 20:03 | disposition home or self-care (01) ==
PROVIDERS: Emergency Provider Emergency Medicine; PCP Internal Medicine
DX: T14.90XA Injury, unspecified, initial encounter (principal); V43.62XA Car passenger injured in collision with other type car in traffic accident, initial encounter; Y93.9 Activity, unspecified; Y92.9 Unspecified place or not applicable; Y99.9 Unspecified external cause status
CPT/HCPCS: 99282

== ENCOUNTER 2025-05-09 08:45 | Outpatient (AMB) | payer MEDICARE, MEDICAID, SELFPAY ==
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
[2025-05-09 08:56] VITALS: BP 110/60; PULSE 61; TEMP 36.3; O2SAT 97; BMI 26.6
--- OUTSIDE RECORDS SUMMARY | 2025-05-09 09:22 | XMS_ITS | Clinical Summary ---
Author Organization 175 [facility] Address [address] [place] [address] Phone Care Team Providers Care Lacquer Sizer Name Role Phone Physician, Pcp Unknown Primary [...] 9:45 AM EDT Office Visit Orthopedic Surgery [facility] [address] [phone] Jewel Medellin DPM Hammer toe of left [...] AM EST Office Visit Orthopedic Surgery - [place] [address] [phone] Jewel Medellin DPM [address] [phone] Health Maintenance Due Date Last Done Comments [...] (2 - Td or Tdap) 09/30/2032 09/30/2022 RSV Immunization Adult Patients (1 - 1-dose 75+ series) 2057 HIB Vaccines Aged Out No longer eligi [...] Insurance MEDICARE MEDICAID - [place] Care Teams Lacquer Sizer Relationship Specialty Start Date End Date Physician, Pcp Unknown PCP - General 09/30/24
== END 2025-05-09 10:34 | disposition home or self-care (01) ==
LOC: HO.HMCH 08:46
PROVIDERS: PCP Internal Medicine; Visit Provider Nurse Practitioner Family
DX: Z04.1 Encounter for examination and observation following transport accident (principal)

== ENCOUNTER → 2025-05-09 08:45 | Outpatient (BNVA) | payer MEDICARE, SELFPAY | PROVIDERS: PCP Internal Medicine; Visit Provider Nurse Practitioner Family | DX: F95.2 Tourette's disorder (principal); Z04.1 Encounter for examination and observation following transport accident | CPT/HCPCS: 99212 ==

== ENCOUNTER 2025-06-06 14:40 | Outpatient (REF) | payer MEDICARE, MEDICAID, SELFPAY ==
--- NOTE | ~2025-06-06 | US_ITS ---
EXAMINATION: US RETROPERITONEAL LIMITED (RENAL ONLY) CLINICAL INFORMATION: Follow-up renal cyst. COMPARISON: Previous abdominal ultrasound November [address] of the abdomen and pelvis October 2006 TECHNIQUE: Real-time imaging of the kidneys. FINDINGS: RIGHT KIDNEY: 10.7 x 4.5 x 5 cm (SAG x AP x TRV). The kidney is normal in size, contour, and echogenicity. Renal cortical thickness is normal. 4 mm echogenic density in the upper pole of the right kidney questionable for an ]angiomyolipoma or stone. No hydronephrosis. LEFT KIDNEY: 10.3 x 6 x 5.4 cm (SAG x AP x TRV). The kidney is normal in size, contour, and echogenicity. Renal cortical thickness is normal. No calculi or focal parenchymal lesions. No hydronephrosis. Previously seen cyst in the mid left kidney on November 2024 ultrasound is not appreciated on the current exam. US/US renal BI IMPRESSION: No left renal cyst appreciated. 4 mm echogenic density in the upper pole of the right kidney, question angiomyolipoma or stone. Consider follow-up CT or MRI of the kidneys with and without IV contrast. Electronically signed by: Destiny Holder MD 06/06/2025 04:41 PM EDT
--- OUTSIDE RECORDS SUMMARY | 2025-06-06 17:09 | XMS_ITS | Clinical Summary ---
Author Organization 175 [facility] Address [address] [place] [address] Phone Care Team Providers Care Psychiatric Nursing Aide Name Role Phone Physician, Pcp Unknown Primary [...] 9:45 AM EDT Office Visit Orthopedic Surgery [facility] [address] [phone] Jewel Medellin DPM Hammer toe of left [...] AM EST Office Visit Orthopedic Surgery - [place] [address] [phone] Jewel Medellin DPM [address] [phone] Health Maintenance Due Date Last Done Comments Hepatitis B Vaccines (1 of 3 - 19+ 3-dose series) 2001 HPV Vaccines (1 - 3-dose SCDM series) 2009 Cholesterol Screening (Lipid Panel) 07/05/2024 HIV Screening [...] Insurance MEDICARE MEDICA[place] - [place] Care Teams Psychiatric Nursing Aide Relationship Specialty Start Date End Date Physician, Pcp Unknown PCP - General 09/30/24
== END 2025-06-06 14:41 | disposition home or self-care (01) ==
LOC: HO.US 14:40
PROVIDERS: PCP Internal Medicine; Visit Provider Internal Medicine
DX: N28.1 Cyst of kidney, acquired (principal)
CPT/HCPCS: 76775

== ENCOUNTER → 2025-06-06 14:42 | Outpatient (BNV) | payer MEDICARE, MEDICAID, SELFPAY | PROVIDERS: PCP Internal Medicine; Visit Provider Radiology Diagnostic Radiology | DX: R93.421 Abnormal radiologic findings on diagnostic imaging of right kidney (principal) | CPT/HCPCS: 76775 ==

== ENCOUNTER 2025-06-30 10:52 | Outpatient (AMB) | payer MEDICARE, MEDICAID, SELFPAY ==
[2025-06-30 10:57] VITALS: BP 116/80; PULSE 79; O2SAT 98; BMI 27.5
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
--- OUTSIDE RECORDS SUMMARY | 2025-06-30 13:01 | XMS_ITS | Clinical Summary ---
Author Organization [address] [facility] Address [address] [place] [address] Phone Care Team Providers Care [employer] Name Role Phone Physician, Pcp Unknown Primary [...] 9:45 AM EDT Office Visit Orthopedic Surgery [facility] [address] [phone] Jewel Medellin DPM Hammer toe of left [...] AM EST Office Visit Orthopedic Surgery - [facility] [address] [phone] Jewel Medellin DPM [address] [phone] Health Maintenance Due Date Last Done Comments [...] Insurance MEDICARE MEDICAID - [place] Care Teams [employer]or Relationship Specialty Start Date End Date Physician, Pcp Unknown PCP - General 09/30/24
== END 2025-06-30 11:52 | disposition home or self-care (01) ==
PROVIDERS: PCP Internal Medicine; Visit Provider Nurse Practitioner Family
DX: M79.661 Pain in right lower leg (principal)

== ENCOUNTER → 2025-06-30 10:52 | Outpatient (BNVA) | payer MEDICARE, MEDICAID, SELFPAY | PROVIDERS: PCP Internal Medicine; Visit Provider Nurse Practitioner Family | DX: M79.661 Pain in right lower leg (principal) | CPT/HCPCS: 99212 ==